=== PATIENT | female | born 2000 | race Caucasian/White ===

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

== ENCOUNTER → 2020-06-13 | Outpatient (CLI) | payer SELFPAY | END | disposition home or self-care (01) | LOC: LABSPEC 07:14 | PROVIDERS: PCP Pediatrics; Referring Provider Family Medicine; Visit Provider Family Medicine | DX: Z11.59 Encounter for screening for other viral diseases (principal) | CPT/HCPCS: 87635; U0003 ==

== ENCOUNTER → 2020-06-24 | Outpatient (CLI) | payer SELFPAY | END | disposition home or self-care (01) | PROVIDERS: PCP Pediatrics; Visit Provider Family Medicine | DX: Z03.818 Encounter for observation for suspected exposure to other biological agents ruled out (principal) | CPT/HCPCS: 87635; U0003 ==

== ENCOUNTER 2020-08-25 08:30 | Emergency (ER) | payer MEDICARE, SELFPAY ==
[2020-08-25 08:31] VITALS: BP 138/87; PULSE 80; RESP 16; TEMP 36.2; O2SAT 99; BMI 27.6
[2020-08-25 08:38] VITALS: O2SAT 98
--- NOTE | 2020-08-25 08:45 | ED.VIS.GEN ---
History of Present Illness Chief Complaint: Shortness of Breath Informant: Patient Narrative: Patient is a 19-year-old previously healthy female who presents to the emergency department for exposure to coronavirus symptoms. She started to have symptoms yesterday. She has been having chills, fatigue, cough with production, shortness of breath. She states she feels very rundown. Her symptoms started yesterday. He has had some diarrhea. She does feel occasionally nauseous. She has been taking NyQuil for her symptoms. Her best friend who had similar symptoms tested positive. Patient does work and a long-term and does get tested. Last test was last week and was negative. She denies smoking history. She does have chronic chest pain that she has had worked up before. This is similar to her baseline. No significant abdominal pain. She has had a headache. Past Medical History - Allergies and Home Meds Allergies/Adverse Reactions: Allergies No Known Allergies Allergy (Verified 04/15/19 00:28) Primary Care Physician: Rachel Bird MD [Primary Care Provider] - Prior records reviewed: Yes Surgical History: tonsillectomy, - Smoking Status: Never smoker Review of Systems All systems negative except as indicated General: Reports: Chills, Fever - Subjective. Denies: Sweats Eyes: Denies: Visual changes - bilaterally, Diplopia ENT: Reports: Rhinorrhea. Denies: Sore throat Cardiovascular: Reports: Chest pain. Denies: Palpitations Respiratory: Reports: Dyspnea, Cough Gastrointestinal: Reports: Nausea, Diarrhea. Denies: Abdominal pain, Vomiting Genitourinary: Denies: Dysuria, Hematuria, Frequency Musculoskeletal: Denies: Back pain, Extremity Pain Skin: Denies: Rash, Wounds Neurological: Reports: Headache. Denies: Weakness, Numbness Physical Exam Vital Signs/Narrative: Vital Signs Temp Pulse Resp BP Pulse Ox 08/25/20 08:31 97.2 F L 80 16 138/87 H 99 Inital Vital Signs reviewed: Yes General: Well nourished, Well developed, No Acute Distress Head: Normocephalic, Atraumatic Eyes: Perrl, EOMI ENT: Moist mucous membranes, No rhinorrhea Neck: Supple, Nontender Cardiovascular: Regular rate, Regular rhythm, No murmurs Respiratory: No distress, CTA bilaterally, Chest nontender Abdomen: Soft, Nondistended Back: Nontender, Normal Inspection Extremities: Nontender, No edema Skin: Normal color, No rash Neurological: Alert, Oriented x3, Cranial nerves II-XII grossly intact, Normal Strength, Normal Sensation Psychological: Normal affect, Normal Mood Diagnostic/Tx/Re-eval - Medical Decision Making Patient presents to the emergency department to be tested for coronavirus. She is started developed symptoms yesterday. She has a known coronavirus exposure. At this time with all of her symptoms I do feel she is Covid positive. Will obtain swab. Needs to quarantine until symptoms resolve. She is advised to get a pulse oximeter and to keep track of her oxygen saturation. She develops any significant shortness of breath and has a desaturation she needs to return to the emergency department immediately. She otherwise is to follow-up with her PCP once quarantine period is over. Otherwise symptomatic treatment with ibuprofen and Tylenol. She understands and is agreeable this plan. Will discharge home in stable condition. All questions answered. ED Disposition - Plan for ED Patient: Disposition: Home or Assisted Living Diagnosis: Viral infection, Exposure to COVID-19 virus, URI (upper respiratory infection) Instructions: Coronavirus Disease 2019 (COVID-19): Caring for Yourself or Others Referrals: Rachel Bird MD [Primary Care Provider] - 1 Week if not improving
== END 2020-08-25 09:10 | disposition home or self-care (01) ==
LOC: ED 09:04
PROVIDERS: Emergency Provider Emergency Medicine; PCP Pediatrics
DX: U07.1 COVID-19 (principal); J06.9 Acute upper respiratory infection, unspecified
CPT/HCPCS: 87635; 99282; U0003

== ENCOUNTER 2021-02-26 19:53 | Emergency (ER) | payer SELFPAY ==
[2021-02-26 19:54] VITALS: BP 136/84; PULSE 98; RESP 18; TEMP 36.7; O2SAT 99; BMI 27.0
--- NOTE | 2021-02-26 20:21 | EX.ED.UPPERE ---
HPI History of Present Illness HPI Narrative: Patient presents with right shoulder pain that is been gone going for a year she was diagnosed with rotator cuff strain. She has been lifting quite a bit and doing quite a bit of work with her right arm. She has no other injuries. Chief Complaint: Upper Extremity Injury PFSH PFSH Home Medications NK 08/25/20 [History Last Taken Unknown] Allergy/AdvReac Type Severity Reaction Status Date / Time No Known Allergies Allergy Verified 02/26/21 19:55 Social History Smoking Status: Never smoker ROS ROS ED ROS Narrative Past medical history: none Medications: Reviewed Social history: Noncontributory Review of systems: Musculoskeletal: Shoulder pain as in HPI Skin: No abrasions or lacerations Neurological: No weakness or paresthesias Hematologic: No easy bleeding or easy bruising EXAM Physical Exam Narrative Exam Narrative: Physical exam General: Patient does not appear in significant distress . Head: Normocephalic, Atraumatic Neck: No C-spine tenderness Cardiovascular: Normal distal pulses Back: Nontender, Normal Inspection. Extremities: Right shoulder has pain over the deltoid and rotator cuff muscles, some pain with abduction greater than 90 degrees but she has full range of motion she has no AC joint tenderness no clavicle tenderness no neck pain or any other pain. Skin: No abrasions, no lacerations Neurological: Normal strength and sensation Const Vital Signs: 02/26/21 19:54 Temperature 98.1 F Temperature Source Temporal Pulse Rate 98 Respiratory Rate 18 Blood Pressure 136/84 H Blood Pressure Mean 101 Pulse Ox 99 Oxygen Delivery Method Room Air MDM MDM MDM Narrative Medical decision making narrative: Patient's symptoms are consistent with rotator cuff tendinitis I do not believe she needs an x-ray. I will give her some exercises, otherwise she can follow-up with her PCP for rehab Discharge Plan Triage Chief Complaint: Upper Extremity Injury ED Provider: Lincoln Abdi Dx/Rx/DC Orders Clinical Impression: Right rotator cuff tendinitis Instructions: Rotator Cuff Injury Prescriptions: No Action NK RF: 0 Primary Care Provider: Rachel Bird Referrals: Rachel Bird MD [Primary Care Provider] - 3-5 Days
== END 2021-02-26 20:44 | disposition home or self-care (01) ==
LOC: ED 20:34
PROVIDERS: Emergency Provider Emergency Medicine; PCP Pediatrics
DX: M75.81 Other shoulder lesions, right shoulder (principal)
CPT/HCPCS: 99282

== ENCOUNTER 2021-05-08 18:51 | Emergency (ER) | payer SELFPAY ==
[2021-05-08 18:53] VITALS: BP 125/87; PULSE 75; RESP 14; TEMP 36.3; O2SAT 98; BMI 26.2
== END 2021-05-08 19:30 | disposition left against medical advice (07) ==
LOC: ED 19:44
PROVIDERS: PCP Pediatrics
DX: Z53.21 Procedure and treatment not carried out due to patient leaving prior to being seen by health care provider (principal)

== ENCOUNTER 2021-08-29 16:44 | Emergency (ER) | payer SELFPAY ==
[2021-08-29 16:45] VITALS: BP 128/77; PULSE 92; RESP 18; TEMP 36.8; O2SAT 98; BMI 26.4
--- NOTE | 2021-08-29 16:53 | EKG12_ITS ---
Test Reason : CP Blood Pressure : / mmHG Vent. Rate : 075 BPM Atrial Rate : 075 BPM P-R Int : 170 ms QRS Dur : 076 ms QT Int : 372 ms P-R-T Axes : 059 051 064 degrees QTc Int : 415 ms Normal sinus rhythm Normal ECG Confirmed by JEANNETTE ARGUELLO, HANNAH ([id number]), restaurant expeditor MARGARETH BRYANT ([id number]) on 09/03/2021 9:55:08 AM Referred By: GUDELIA Confirmed By:HANNAH MACHADO MD
--- NOTE | 2021-08-29 16:53 | RAD_ITS ---
STUDY: X-RAY CHEST REASON FOR EXAM: Female, 20 years old. Chest pain. Headache and cough. TECHNIQUE: Single AP portable view of the chest. COMPARISON: 09/26/2019. FINDINGS: The lungs are clear and expanded. There is no demonstrated pleural abnormality. Normal size heart. Normal mediastinum and julien. Normal visualized pulmonary arteries. Normal visualized aortic arch and descending thoracic aorta. Normal visualized thoracic spine. Normal visualized ribs, clavicles, and shoulders. There is no demonstrated abnormality of the visualized soft tissue structures of the upper abdomen. RAD/Chest 1 View (Portable) IMPRESSION: No acute cardiopulmonary disease or major interval change. Electronically Signed: Danilo Trejo DO at 18:03 EST Tel [phone], Service support ,
--- NOTE | 2021-08-29 17:43 | ED.RN ---
PT. STATES THEY WERE AROUND FAMILY WITH COVID. STARTED HAVING SYMPTOMS YESTERDAY. COVID TEST YESTERDAY WAS NEGATIVE. NEEDS PROOF FOR WORK THAT THEY ARE NEGATIVE FOR COVID.
--- NOTE | 2021-08-29 18:51 | EX.ED.DYSGE1 ---
HPI History of Present Illness Chief Complaint: General Illness Narrative Narrative: 20-year-old female presenting with body aches, chills, mild cough. She lives with her roommate who also has the same symptoms. Her roommates mother tested positive for COVID-19. Patient states that she felt generally unwell for the last couple of days and she called in sick today and did not have a doctor's note so she was sent to the ER for doctor's note. Patient is only having very mild symptoms. She does not have any cardiac history or pulmonary history. She states she has no medical problems. PFSH PFS Home Medications NK 08/25/20 [History Last Taken Unknown] Allergy/AdvReac Type Severity Reaction Status Date / Time No Known Allergies Allergy Verified 05/08/21 18:52 Social History Smoking Status: Current every day smoker tobacco type: cigarettes ROS ROS ED Constitutional Constitutional ED: Reports chills and fever(s) Eyes Eyes: Denies blurry vision or diplopia ENT ENT ED: Denies rhinorrhea or sore throat Cardiovascular Cardiovascular: Denies chest pain or palpitations Respiratory/Chest Respiratory/Chest: Reports cough and dyspnea Gastrointestinal Gastrointestinal: Reports nausea; Denies abdominal pain or vomiting Genitourinary Genitourinary ED: Denies dysuria or hematuria Musculoskeletal Musculoskeletal: Reports myalgias; Denies arthralgias Integumentary Denies rash Neurologic Neurologic: Denies headache(s), paresthesias or weakness EXAM Physical Exam Const Vital Signs: 08/29/21 16:45 08/29/21 17:42 Temperature 98.2 F Temperature Source Temporal Pulse Rate 92 Respiratory Rate 18 Respiratory Effort Normal Non-Labored Blood Pressure 128/77 H Blood Pressure Mean 94 Pulse Ox 98 Oxygen Delivery Method Room Air Positive well nourished General Appearance ED: NAD; Negative for pallor HEENT Reports moist mucous membranes Negative for trauma Eyes PERRL and EOMs intact bilaterally Neck no lymphadenopathy and supple Chest Wall inspection of chest normal and palpation of chest normal Resp normal respiratory effort and clear to auscultation bilaterally Cardio regular rate and regular rhythm Neuro oriented x3 and CN's II-XII intact bilaterally Sensorium / Orientation: alert Motor Exam: strength 5/5 throughout Psych mental status grossly normal Skin General Skin Exam: Negative for jaundice or pallor MDM MDM MDM Narrative Medical decision making narrative: Patient initially reported to triage nurse that she was having chest pain however she denies this on my exam. She states he is here for a work note because she has to call in sick to work because she thinks she might had COVID-19. Patient's vital signs are stable here. She is not tachycardic, tachypneic, febrile, hypoxic. Her physical exam is normal and her lungs are clear. I obtained a chest x-ray which is negative for acute pulmonary process on my interpretation and the radiologist does agree. Patient will have a Covid test ordered and will be pending. Patient will quarantine at home for results. Impression: 1. Viral syndrome Radiography Diagnostic Testing: Clinical Impression(s) from Imaging Studies Chest X-Ray 08/29/21 16:53 IMPRESSION: No acute cardiopulmonary disease or major interval change. Electronically Signed: Danilo TrejoDO at 18:03 EST Tel [phone], Service support , Discharge Plan Triage Chief Complaint: General Illness ED Provider: Yan Floyd Dx/Rx/DC Orders Instructions: Coronavirus Disease 2019 (COVID-19): Caring for Yourself or Others Prescriptions: No Action NK RF: 0 Stand Alone Forms: ED Work / School Excuse Primary Care Provider: Rachel Bird Referrals: Rachel Bird MD [Primary Care Provider] - Disposition Disposition: Home, Self Care Discharge Date/Time: 08/29/21 18:53
== END 2021-08-29 18:53 | disposition home or self-care (01) ==
PROVIDERS: Emergency Provider Student in an Organized Health Care Education/Training Program; PCP Pediatrics
DX: B34.9 Viral infection, unspecified (principal); R05.9 Cough, unspecified; R68.83 Chills (without fever); M79.10 Myalgia, unspecified site; R11.0 Nausea; F17.210 Nicotine dependence, cigarettes, uncomplicated
CPT/HCPCS: 71045; 87635; 93005; 99282; U0003; U0005

== ENCOUNTER 2022-03-29 18:58 | Emergency (ER) | payer SELFPAY ==
[2022-03-29 18:59] VITALS: BP 132/88; PULSE 84; RESP 16; TEMP 37.6; O2SAT 99; BMI 24.7
--- NOTE | 2022-03-29 19:25 | EDS_ITS ---
HPI HPI - GI History of Present Illness Chief Complaint: Nausea/Vomiting Informant: patient Abdominal Pain/Flank Pain Onset: Month(s) Context: Gradual Onset Timing: Intermittent Quality: Cramping Location: Diffuse Current Severity: Gone Maximum Severity: Mild Worsened by: Nothing Relieved by: Nothing Nausea/Vomiting/Emesis GI Symptom: Positive for Nausea and Vomiting Onset: Weeks Severity: Mild Diarrhea/Melena/Hematochezia GI Symptom: Positive for Diarrhea; Negative for Melena or Hematochezia Onset: Weeks Stool Quality: Positive for Loose Severity: Mild Associated Symptoms Associated Symptoms: Positive for Frequency; Negative for Dysuria, Hematuria or Urgency Narrative Narrative: 21-year-old female no signet past medical history. No prior abdominal surgeries. Mom states that she has been under a lot of stress. Month or 2 ago her girlfriend broke up with her. And now she has been unable to eat. She says she been emotional. She has had decreased appetite. In the last 30 days she is gone from 220 pounds to 182 had about a 38 pound weight loss. Mom says she is never had an eating door sorter before. Patient states when she eats sometimes she has abdominal cramping and other times nausea and vomiting. Denies dysuria but states she has had urinary frequency. She has been drinking plenty of fluids. She just states she does not have an appetite and feel like eating. Prior similar symptoms: No Recent Illness/Hospitalization: No PFSH PFSH Medical History no medical history no medical history Home Medications ondansetron 4 mg disintegrating tablet 4 mg PO Q6H PRN nausea and vomiting #10 tabs 03/29/22 [Rx Last Taken Unknown] Allergy/AdvReac Type Severity Reaction Status Date / Time No Known Allergies Allergy Verified 03/29/22 19:04 Surgical History (Updated 03/29/22 @ 19:40 by Bell Miles) History of tonsillectomy and adenoidectomy Social History Smoking Status: Current every day smoker tobacco type: cigarettes and e- cigarettes ROS ROS ED ROS Narrative Nausea, vomiting, diarrhea and urinary frequency. Decreased appetite. Review of Systems ROS Unobtainable: Denies due to encephalopathy Constitutional Constitutional ED: Denies chills or fever(s) ENT ENT ED: Denies ear pain Cardiovascular Cardiovascular: Denies chest pain Respiratory/Chest Respiratory/Chest: Denies cough Gastrointestinal Gastrointestinal: Reports abdominal pain, diarrhea, nausea and vomiting; Denies melena Genitourinary Genitourinary ED: Reports urinary frequency; Denies dysuria or hematuria Musculoskeletal Musculoskeletal: Denies arthralgias or back pain Integumentary Denies abscess or Abrasions Neurologic Neurologic: Denies headache(s) Psychiatric Psychiatric: Reports depression; Denies anxiety Endocrine Endocrinology: Denies polydipsia Hematologic/Lymphatic Hematologic/Lymphatic: Denies easy bleeding Allergic/Immunologic Allergic/Immunologic ED: Denies mouth swelling EXAM Physical Exam Narrative Exam Narrative: 21-year-old female no acute distress. Vital signs stable afebrile. Patient does not look septic toxic. Mom present at bedside. H EENT exam unremarkable. Moist with membranes. Neck nontender no lymphadenopathy. Lungs clear to auscultation bilaterally. Heart regular rhythm rate about 80 no murmur. Abdomen soft nontender normal bowel sounds no peritoneal signs. No distention. No hernia or mass. Completely nontender. Moving all 4 extremities. Back nontender. Skin unremarkable. Neurologically she is awake and alert. Emotionally seems a little depressed. With a 38 pound weight loss she does not seem emaciated nor cachectic. Const Vital Signs: 03/29/22 18:59 Temperature 99.7 F H Temperature Source Temporal Pulse Rate 84 Respiratory Rate 16 Blood Pressure 132/88 H Blood Pressure Mean 102 Pulse Ox 99 Oxygen Delivery Method Room Air Positive well nourished and well developed; Negative for obese, cachectic, contractures or unkempt General Appearance ED: well developed and NAD; Negative for unkempt, cachectic, contractures or pallor Nutritional Appearance: Negative for cachectic or obese HEENT Reports moist mucous membranes; Denies dry mucous membranes normocephalic and atraumatic; Negative for trauma or tenderness Mouth ED: No dry mucous membranes Mouth: No dry mucous membranes Eyes PERRL and EOMs intact bilaterally General Eye ED: Negative for pale conjunctiva or scleral icterus Neck no lymphadenopathy and supple General: Negative for tenderness Carotids: Negative for other Lymph Lymphatic: Negative for other Resp normal respiratory effort and clear to auscultation bilaterally Effort and Inspection: Negative for respiratory distress Auscultation: Negative for rales, rhonchi or wheezes Cardio regular rate, regular rhythm, S1 normal heart sound, S2 normal heart sound and no murmurs Rate: Negative for bradycardia Rhythm: Negative for abnormal rhythm GI non-tender, non-distended and no masses Inspection: Negative for abdominal distention Auscultation: normoactive bowel sounds Palpation: soft; Negative for tender, guarding or rigid Back/Spine no CVA tenderness General Back: Negative for CVA tenderness Cervical Spine: Negative for cervical spine tenderness Thoracic Spine / Upper Back: Negative for thoracic spinal tenderness Lumbar Spine / Lower Back: Negative for lumbar spinal tenderness Coccyx: Negative for other Extremity full ROM General Extremety ED: Negative for edema or tenderness General Extremity: Negative for edema Neuro CN's II-XII intact bilaterally and moves all extremities Sensorium / Orientation: alert, oriented to person, oriented to place and oriented to time; Negative for orientation impaired, confused, lethargic or stuporous Motor Exam: strength 5/5 throughout; Negative for general weakness or strength abnormal Psych mental status grossly normal and thought process normal Appearance: Negative for unkempt Attitude: No agitated Mood & Affect: depressed; Negative for anxious or tearful Skin no wounds General Skin Exam: Negative for jaundice or pallor Lesions: no lesions Rashes: no rashes Trauma: Negative for abrasion Nails: Negative for discolored MDM MDM MDM Narrative Medical decision making narrative: 1-year-old female who reportedly has not been eating much at all but has been taking fluids for the last month and has reportedly a 30 pound weight loss. This may be secondary to depression. She might also be developing an eating disorder. Her exam is benign. She is well-hydrated. Her abdomen is nontender. We will check screening labs. She will need outpatient follow-up. Repeat exam patient doing well. She does clinically seem depressed. She went to talk to crisis which were making available. I do not think she will need a mental health admission. She will be discharged home with her mom with outpatient follow-up. Prescription for Zofran for nausea. Patient doing well at 8:50 PM on repeat exam. Discussed test results with her and her mom. She will be discharged to home as long as crisis is in agreement. Patient doing well at 11:15 PM. She has been checked out to the overnight physician. Just waiting to talk to crisis. Lab Data Attestation: I reviewed the patient's lab results. Lab results narrative: test negative. CBC normal. White count of 6. H&H 13 and 38. Chemistries normal gap of 5 normal BUN and creatinine. Liver enzymes unremarkable. Lipase normal 106. Urinalysis negative. No white or red cells. No nitrites. Labs: Laboratory Results - last 24 hr 03/29/22 03/29/22 03/29/22 19:35 19:35 19:35 WBC 6.9 RBC 4.21 Hgb 13.0 Hct 38.8 MCV 92.2 MCH 30.9 MCHC 33.5 RDW Std Deviation 46.3 H RDW Coeff of Leonila 13.6 Plt Count 226 MPV 12.6 H Immature Gran % (Auto) 0.300 Neut % (Auto) 66.7 Lymph % (Auto) 24.7 [place] % (Auto) 6.5 Eos % (Auto) 0.9 Baso % (Auto) 0.9 Absolute Neuts (auto) 4.6 Absolute Lymphs (auto) 1.70 Nucleated RBC % 0 Sodium 141 Potassium 3.5 Chloride 108 H Carbon Dioxide 28.0 Anion Gap 5 BUN 5 L Creatinine 0.80 Estim Creat Clear Calc 128.37 Est GFR (MDRD) Af Amer 116 Est GFR (MDRD) Non-Af 96 BUN/Creatinine Ratio 6.3 L Glucose 100 Calcium 9.5 Total Bilirubin 0.50 AST 10 L ALT 12 L Alkaline Phosphatase 50 Total Protein 7.3 Albumin 4.2 Globulin 3.1 Albumin/Globulin Ratio 1.4 Lipase 106 Serum , Qual NEGATIVE Urine Color Urine Clarity Urine pH Ur Specific [place] Urine Protein Urine Glucose (UA) Urine Ketones Urine Occult Blood Urine Nitrite Urine Bilirubin Urine Urobilinogen Ur Leukocyte Esterase Urine RBC Urine WBC Ur Squamous Epith Cells Urine Bacteria Urine Mucus 03/29/22 20:47 WBC RBC Hgb Hct MCV MCH MCHC RDW Std Deviation RDW Coeff of [place]ila Plt Count MPV Immature Gran % (Auto) Neut % (Auto) Lymph % (Auto) [place] % (Auto) Eos % (Auto) Baso % (Auto) Absolute Neuts (auto) Absolute Lymphs (auto) Nucleated RBC % Sodium Potassium Chloride Carbon Dioxide Anion Gap BUN Creatinine Estim Creat Clear Calc Est GFR (MDRD) Af Amer Est GFR (MDRD) Non-Af BUN/Creatinine Ratio Glucose Calcium Total Bilirubin AST ALT Alkaline Phosphatase Total Protein Albumin Globulin Albumin/Globulin Ratio Lipase Serum , Qual Urine Color Yellow Urine Clarity Clear Urine pH 6.5 Ur Specific [place] 1.015 Urine Protein Negative Urine Glucose (UA) Normal Urine Ketones Negative Urine Occult Blood Negative Urine Nitrite Negative Urine Bilirubin Negative Urine Urobilinogen 1 H Ur Leukocyte Esterase 25 H Urine RBC 0 SEEN Urine WBC 0-5 SEEN Ur Squamous Epith Cells 0-5 SEEN Urine Bacteria 1+ Urine Mucus 0 SEEN Discharge Plan Triage Chief Complaint: Nausea/Vomiting ED Provider: Jean Claude Foreman Dx/Rx/DC Orders Clinical Impression: Depression, Eating disorder Instructions: ED Depression Prescriptions: New ondansetron 4 mg tablet,disintegrating 4 mg PO Q6H PRN (Reason: nausea and vomiting) Qty: 10 0RF Primary Care Provider: Rahcel Bird Referrals: Sai Booth MD [Med Staff - Quality Assurance Supervisor [employer]] - As soon as possible Rachel Bird MD [Primary Care Provider] - As soon as possible Activity Restrictions/Additional Instructions: Follow-up with a local primary care physician. Plenty of fluids. Start with a bland diet and increase slowly as tolerated. Disposition Disposition: Home, Self Care
[2022-03-29 19:52] LABS: Internal QC Validated? YES +Cl - CLEAR BKGD; Pregnancy, Serum, hCG Quali. NEGATIVE Negative
[2022-03-29 20:06] LABS: Absolute Neutrophil Count 4.6 X10^3/uL (2.0-7.7); Basophil# 0.06 X10^3/uL; Basophil% 0.9 % (0-1); Eosinophil# 0.06 X10^3/uL; Eosinophils% 0.9 % (0-5); Hematocrit 38.8 % (37-47); Lymphocyte % 24.7 % (19-41); Mean Corp Hgb Conc 33.5 g/dL (32-36); Mean Corpuscular Hgb 30.9 pg (27.0-32.0); Mean Corpuscular Volume 92.2 fL (81-99); Mean Platelet Vol. 12.6 fl (6.2-12.0); Monocyte# 0.45 X10^3/uL; Monocyte% 6.5 % (0-10); NRBC Flagged by Analyzer 0 % (0-5); Neutrophil # 4.59 X10^3/uL (2.7-7.7); Neutrophil % 66.7 % (47-70); Platelet Count 226 K/mm3 (150-450); RBC Distribution Width CV 13.6 % (11.6-14.6); RBC Distribution Width SD 46.3 fl (35.1-43.9); Red Blood Count 4.21 M/mm3 (4.2-5.4); White Blood Count 6.9 K/mm3 (4.4-11.0)
[2022-03-29 20:20] LABS: ALB/GLOB Ratio 1.4 RATIO (0.9-2.4); AST(SGOT) 10 U/L (15-37); Alanine Aminotransfer ALT/SGPT 12 U/L (13-56); Albumin, Serum 4.2 g/dL (3.2-5.0); Alkaline Phosphatase 50 U/L (45-117); BUN 5 mg/dL (7-18); BUN/Creat Ratio 6.3 RATIO (10-20); Calcium,Total 9.5 mg/dL (8.5-10.1); EST Glomerular Filtration Rate 96 mL/min (>60); Est Glom Filt Rate - Afr Amer 116 mL/min (>60); Estimated Creatinine Clearance 128.37 ml/min; Globulin 3.1 g/dL (2.2-4.2); Glucose 100 mg/dL (74-106); Lipase 106 U/L (73-393); Protein, Total 7.3 g/dL (6.4-8.2)
[2022-03-29 20:21] LABS: Anion Gap 5 (5-15); Chloride 108 mmol/L (98-107); Potassium 3.5 mmol/L (3.5-5.1); Sodium Level 141 mmol/L (136-145)
[2022-03-29 21:03] LABS: Mucous, Urine 0 SEEN /hpf (<or=2+); Red Blood Cells-Urine 0 SEEN /hpf (0-5)
[2022-03-29 21:05] LABS: Color, Urine Yellow (Yellow); Glucose, Dipstick Normal (Normal); Ketone-Dipstick Negative (Negative); Leukocyte Esterase-Dipstick 25 /ul (Negative); Nitrite-Dipstick Negative (Negative); Occult Blood-Urine Negative /ul (Negative); Protein-Dipstick Negative (Negative); Specific Gravity, Urine 1.015 (1.002-1.030); Urine Bilirubin Dipstick Negative (Negative); Urine Clarity Clear (Clear); Urine Urobilinogen 1 mg/dl (Normal); Urine pH 6.5 (5.0 - 8.0)
[2022-03-29 21:15] LABS: Bacteria 1+ /hpf (None Seen); Squamous Epithelial Cells - UA 0-5 SEEN /hpf (5-10); White Blood Cells 0-5 SEEN /hpf (0-5)
[2022-03-30 01:43] VITALS: BP 105/74; PULSE 67; RESP 15; O2SAT 99
== END 2022-03-30 01:43 | disposition home or self-care (01) ==
PROVIDERS: Emergency Provider Emergency Medicine; PCP Pediatrics; Visit Provider Emergency Medicine
DX: F32.A Depression, unspecified (principal); R11.2 Nausea with vomiting, unspecified; F17.210 Nicotine dependence, cigarettes, uncomplicated; F17.290 Nicotine dependence, other tobacco product, uncomplicated; F50.9 Eating disorder, unspecified; R19.7 Diarrhea, unspecified; R10.9 Unspecified abdominal pain; Z68.24 Body mass index [BMI] 24.0-24.9, adult
CPT/HCPCS: 80053; 81001; 83690; 84703; 85025; 99284; A4216

== ENCOUNTER 2022-04-07 08:00 | Outpatient (RCR) | payer SELFPAY ==
--- NOTE | 2022-04-07 09:00 | BH.SGPN.GN ---
Behaviors/Verbalizations/Mental Status: []Pt alert and oriented, disheveled. Eye contact good. Motor activity appropriate. Speech within normal limits. Affect flat, mood anxious and depressed. Thoughts linear, logical, no signs of hallucinations or delusions. Pt completed the CSSR-S this morning, no active SI. Client Response/Progress/Benefit: []Pt responded somewhat well to session, anxious and quiet, but receptive to encouragement from peers. Pt declined to share today as it was her first day in IOP tx. The group offered pt emotional support and advice for reducing anxiety in IOP. Pt expressed being thankful to peers for the feedback and appeared to benefit from the welcoming and accepting environment. Pt will continue IOP tx to prevent decompensation, reduce SI, and gain healthy coping skills. Narrative Note: [] Behaviors/Verbalizations/Mental Status: []Pt alert and oriented, disheveled. Eye contact good. Motor activity appropriate. Speech within normal limits. Affect flat, mood anxious and depressed. Thoughts linear, logical, no signs of hallucinations or delusions. Pt completed the CSSR-S this morning, no active SI. Client Response/Progress/Benefit: []Pt responded somewhat well to session, anxious and quiet, but receptive to encouragement from peers. Pt declined to share today as it was her first day in IOP tx. The group offered pt emotional support and advice for reducing anxiety in IOP. Pt expressed being thankful to peers for the feedback and appeared to benefit from the welcoming and accepting environment. Pt will continue IOP tx to prevent decompensation, reduce SI, and gain healthy coping skills. Narrative Note: []
--- NOTE | 2022-04-07 09:00 | BH.COMM ---
Communication Note - Communication with Client Communication Note: Met with patient to complete initial paperwork. No significant changes since pre-admission screening. Completed [place] Suicide Screener. Pt reports long-standing suicidal thoughts with methods (crash car) since she was a teenager. Recent break-up with GF which triggered increased suicidal thoughts in the past 2 months. She reports that thoughts are fleeting lasting only minutes and she believes that she can control them. No hx of attempts. Protective factors. Future-oriented. In describing her thoughts they appears to be mostly passive (seconds-minutes) which occur daily with thoughts of method however no concrete plan or intent. Does not present as imminent risk to self. Consulted with Dr. Ram with plan to admit to IOP level of care with dx of F33.2.
--- NOTE | 2022-04-07 10:05 | BH.SGPN.GN ---
Behaviors/Verbalizations/Mental Status: [] Client alert and oriented, casually dressed and groomed. Eye contact good. Motor activity appropriate. Speech within normal limits. Affect constricted, mood dysthymic. Thoughts linear, logical, no signs of hallucinations or delusions. Client Response/Progress/Benefit: [] Client was an active participant in activity and taking notes during group discussion. Client adjusting to group environment with it being her first day in IOP. Attentive AEB taking notes during psychoeducation on coping skills, why people use unhealthy coping skills, and how to replace unhealthy coping skills. Benefited from increased understanding of unhealthy coping skills and the need for developing healthy internal and external coping skills. Pt will continue IOP tx to prevent decompensation, maintain safety, and improve daily functioning. Narrative Note: []
--- NOTE | 2022-04-07 11:05 | BH.SGPN.GN ---
Behaviors/Verbalizations/Mental Status: [] Client alert and oriented, neatly dressed and groomed. Eye contact fair to good. Motor activity appropriate. Speech within normal limits. Affect constricted, mood euthymic. Thoughts linear, logical, no signs of hallucinations or delusions. Client Response/Progress/Benefit: [] Client responded well to session AEB taking notes and providing input and examples throughout. Group discussed the different categories of coping skills which included distraction, emotional release, grounding, self-love, and thought challenging. Client created a coping skill menu identifying various skills to try in each category. Client chose to cope by exercising when feeling intense emotions. Appeared to benefit from increasing repertoire of healthy coping skills. Client will continue IOP tx to improve daily functioning, prevent decompensation and increase application of healthy coping skills. Narrative Note: []
--- NOTE | 2022-04-08 09:00 | BH.SGPN.GN ---
Behaviors/Verbalizations/Mental Status: []Pt alert and oriented, casually dressed. Eye contact poor. Motor activity appropriate. Speech WNL. Affect flat, mood depressed. Thoughts linear, logical, no signs of hallucinations or delusions. Reviewed pt?s symptom tracker client indicated a 3/5, with 5 being severe, for suicidal ideation and 3/5 for suicidal intent. This is pt's baseline. Does not appear to be imminent risk to harm self or others. Client Response/Progress/Benefit: []Pt appeared to listen attentively to peers check-in. Pt elected to not share mental health wins, stressor or emotion this morning. Client's first week in IOP and had shared she is anxious about talking in a group setting. Client seemed to benefit from listening to peers current wins and stressors. Client will continue IOP tx to improve daily functioning, increase healthy coping skills and prevent decompensation.
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
[2022-04-08 11:51] VITALS: BP 132/92; PULSE 64
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
--- NOTE | 2022-04-08 12:21 | BH.DR.ITP ---
Initial Treatment Plan Patient Information Visit Information: ADMISSION DATE: EXPECTED LOS: 4-6 weeks Problems/Symptoms Problem #1:: Depression Symptom:: Sadness, hopelessness, worthlessness, guilt, anhedonia, biological disruption of appetite and sleep, decreased concentration, passive thoughts of , passive, fleeting suicidal ideation Problem #2:: Anxiety Symptom:: Worry, rumination
--- NOTE | 2022-04-09 09:56 | BH.PSA ---
Suicide Assessment Treatment Plan Recommendations
--- NOTE | 2022-04-09 10:10 | BH.SGPN.GN ---
Behaviors/Verbalizations/Mental Status: []Client alert and oriented, casual dress, hygiene tended to. Eye fair. Motor activity appropriate. Speech within normal limits. Affect constricted. mood dysthymic. Thoughts linear, logical, no signs of hallucinations or delusions. Client Response/Progress/Benefit: []Pt mostly passive participant. Pt appeared to listen attentively to peers, did not provide feedback during large group discussion. Pt worked with the group during discussion of the costs of resisting change and the benefits of adapting to adversity. \Attentive during psychoeducation on various leyva factors in developing personal resilience. Pt worked in small group at times helping group with identifying benefits of each factor in fostering resilience. Pt stated she struggles most with the resilience factor of taking care of herself. Recognizes this keeps her isolated and depressed. Pt seemed to benefit from increasing awareness of strategies to increase personal resilience and the impacts of resilience on managing mental health sx. Will continue IOP tx to promote the use of healthy coping skills, improve daily functioning and prevent decompensation.
--- NOTE | 2022-04-09 11:10 | BH.SGPN.GN ---
Behaviors/Verbalizations/Mental Status: []Client alert and oriented, casually dressed and groomed. Eye contact fair.. Motor activity appropriate. Speech within normal. Affect constricted. Mood dysthymic. Thoughts linear, logical, no signs of hallucinations or delusions. Client Response/Progress/Benefit: []Client semi-engaged participant as evidenced by client engaged in activity and appeared to listen attentively to others, however providing limited input throughout discussion. Client engaged in group activity. Able to connect how the group utilized the 10 resiliency components to be successful in challenge activity. Client did not share what resiliency component she would like to strengthen, nor did she share the goal she created. Client appeared to benefit from increasing insight to ways in which client can improve resilience to adversity and daily stressors. Client to continue IOP tx to increase emotion regulation, increase healthy coping and prevent decompensation.
--- NOTE | 2022-04-09 13:56 | BH.MTP ---
Master Treatment Plan - Psychiatric Diagnoses Psychiatric Diagnoses:: 1. Major depressive disorder, recurrent, severe without psychosis. 2. Generalized anxiety disorder. 3. Body dysmorphic disorder. 4. Eating disorder, NOS. 5. Strong cluster B traits Diagnosis Code(s):: F33.2 Problem/Goal #1 - Problem/Goal #1 Functional Impact: The patient is a 21-year-old single female with a history of longstanding depression and worsening depression following a break-up with a girlfriend 2 months ago who was referred to the [facility] intensive outpatient program by the crisis center after she went to the emergency room on March 30, 2022 with complaints of depression, passive suicidal ideation and not eating. Since the break-up with her girlfriend and the worsening of her depression and anxiety the patient could not eat without feeling sick. Since break up client endorses difficulty getting out of bed, depressed mood, increased anger/irritability, destruction of her own property, uncontrollable crying, feelings of worthlessness and hopelessness. Mental health was also impacting work functioning which led to decrease in her hours. She also has fleeting, passive suicidal ideation with a possible plan to wrecked her car but she states that she would never kill herself.
--- NOTE | 2022-04-09 14:46 | BH.MDN ---
Multi-Disciplinary Note - Note 45-min Individual Time Started:: 09:00 Date: 04/09/22 Time Stopped:: 09:45
--- NOTE | 2022-04-13 09:00 | BH.SGPN.GN ---
Behaviors/Verbalizations/Mental Status: []Eye contact is fair. Motor activity is appropriate. Appearance is casual. Speech is Appropriate. Mood is euthymic. Affect is congruent. Thoughts are linear and logical. No evidence of psychosis. Reviewed daily check in sheet and indicates a 3/5, with 5 being severe, for suicidal ideation and a 3/5 for suicidal intent. This is client's baseline for suicidal ideation. Does not appear to be imminent risk to harm self or others. future focused. Client Response/Progress/Benefit: [] Client respond well to session as evidenced by listening attentively to others and sharing thoughts and feelings. Client reported mental health positive as eating over the weekend and not getting nauseous or hating myself. Client reported additional mental positive as hanging out with friends which she reported being able to have fun and stay in the moment. Client reported current stressor is getting her hours cut at work which increases financial stress. Client seemed to benefit from support from peers. Client to continue IOP to increase healthy coping, improve view of self, and prevent decompensation.
--- NOTE | 2022-04-13 10:05 | BH.SGPN.GN ---
Behaviors/Verbalizations/Mental Status: []Pt alert and oriented, disheveled appearance. Eye contact good. Motor activity appropriate. Speech within normal limits. Affect congruent-smiling, mood euthymic and anxious. Thoughts linear, logical, no signs of hallucinations or delusions. Client Response/Progress/Benefit: []Pt attentive during psychoeducation and participated in group activity. Participated in interactive group discussion on internal and external barriers to mental health progress. Group identified examples of internal barriers as; negative thoughts, anxiety, cognitive distortions, and past experiences. Pt caty a picture of their current reality which pt described as like I'm under water and there's no way to get out and I have supports, but I don't care enough to ask for help. Pt also caty their desired reality which pt using my supports and breaking down my problems. Pt also reported she wants to get to the point where I leave my old self behind and have a new self. Benefited from increased awareness of current barriers to progress as well as current/desired realities. Pt will continue IOP tx to prevent decompensation, gain healthy coping skills, and improve daily functioning. Narrative Note: []
--- NOTE | 2022-04-13 11:10 | BH.SGPN.GN ---
Behaviors/Verbalizations/Mental Status: [] Eye contact is good. Motor activity is appropriate. Appearance is casual. Speech is Appropriate. Mood is depressed. Affect is flat. Thoughts are linear and logical. No evidence of psychosis. Client Response/Progress/Benefit: [] Pt was an active participant in group discussions. Attentive during psychoeducation. Engaged in experiential group activity. Able to identify barriers to desired reality which include: isolation, negative thoughts, and poor view of self. Participated as group brainstormed ideas on how to cope with internal barriers that can keep individuals stuck. Benefited from group by identifying obstacles and solutions to desired reality.? Will continue in IOP to maintain safety, increase healthy coping, and prevent decompensation. Narrative Note: []
--- NOTE | 2022-04-14 10:15 | BH.SGPN.GN ---
Behaviors/Verbalizations/Mental Status: [] Client alert and oriented, casually dressed and groomed. Eye contact good. Motor activity appropriate. Speech within normal limits. Affect constricted, mood anxious. Thoughts linear, logical, no signs of hallucinations or delusions. Client Response/Progress/Benefit: [] Client responded well to session AEB listening attentively to others and participating in group activity. Client still struggling to share in group dynamic. Group provided examples of benefits of having social support, including: validation, increased confidence, and better mental health. Group discussed the barriers to accessing support and different forms of support that make up our safety net. Client participated in experiential activity illustrating the impact communication, boundaries, and patience play in creating healthy support systems. Client appeared to benefit from increased knowledge of the benefits of social support and greater self-awareness. Will continue IOP tx to prevent decompensation, increase utilization of healthy coping skills, and improve overall functioning. Narrative Note: []
--- NOTE | 2022-04-14 11:15 | BH.SGPN.GN ---
Behaviors/Verbalizations/Mental Status: [] Client alert and oriented, casually dressed and groomed. Eye contact good. Motor activity appropriate. Speech within normal limits. Affect congruent, mood anxious Thoughts linear, logical, no signs of hallucinations or delusions. Client Response/Progress/Benefit: [] Client was an active participant throughout AEB presenting attentive and taking notes. Client is still struggling to share in a group environment. Client processed emotions felt in the activity and how they coped in the moment. Client indicated after identifying what type of supports she receives, she gained awareness that she could benefit from more tangible supports. Client identified steps to achieve this by asking for help, get out more, and realizing when needing support. Client shared increasing tangible supports will help her know she is not alone and that someone can be there to help. Client seemed to benefit from identifying the type of support client needs to work on improving. Client recommended to continue IOP tx to increase healthy coping reduce isolation, and increase overall functioning. . Narrative Note: []
--- NOTE | 2022-04-14 15:49 | BH.MDN ---
Multi-Disciplinary Note - Note 45-min Individual Time Started:: 09:00 Date: 04/14/22 Time Stopped:: 09:50
--- NOTE | 2022-04-15 09:00 | BH.SGPN.GN ---
Behaviors/Verbalizations/Mental Status: []Eye contact is good. Motor activity is appropriate. Appearance is casual. Speech is within normal limits, but pt interrupting and engaging in side conversations during group. Mood is hyper. Affect is congruent. Thoughts are linear and logical. No evidence of psychosis. Reviewed daily check in sheet and no reports of suicidal ideations or intent. Client Response/Progress/Benefit: []Pt responded somewhat well to session, pt checked-in, but pt was highly distracted today and disrupting group by laughing and talking with a peer while others checked-in. Pt stated her wins were showing up for group today and using healthy distractions at work when pt felt frustrated. Therapist had a difficult time redirecting pt and had to tell pt to respect others by being quiet while others shared. Pt did not share any stressors today and shared feeling tender this morning. Pt will continue IOP tx to increase emotional regulation skills, reduce avoidance, and improve daily functioning. Narrative Note: []
--- NOTE | 2022-04-15 10:05 | BH.SGPN.GN ---
Behaviors/Verbalizations/Mental Status: [] Eye contact is good. Motor activity is appropriate. Appearance is casual. Speech is Appropriate. Mood is depressed. Affect is flat. Thoughts are linear and logical. No evidence of psychosis. Client Response/Progress/Benefit: [] Pt was an active participant in group discussion. Attentive during psychoeducation on cognitive distortions, the CBT triangle, and automatic thoughts. This group was very information heavy as therapist introduced 10 common cognitive distortions which included; All or Nothing Thinking, Overgeneralization, Mental Filter, Disqualifying the Positives, Jumping to Conclusions, Emotional Reasoning, Labeling, Catastrophizing, Shoulds/Musts, and Personalization. Pt along with peers did contribute examples of each distortion. Benefited from increased knowledge and insight into cognitive distortions and how they can impact mental health. Will continue in IOP to maintain safety, increase healthy coping, and prevent decompensation. Narrative Note: []
--- NOTE | 2022-04-21 09:00 | BH.SGPN.GN ---
Behaviors/Verbalizations/Mental Status: []Pt alert and oriented, casually dressed and groomed. Eye contact good, motor activity appropriate. Mood euthymic. Affect congruent. Speech within normal limits. Thoughts linear, logical, no signs of delusions or hallucinations. Reviewed pt's symptom tracker, no risk for SI plan or intent as pt's scores were within her baseline. Client Response/Progress/Benefit: [] Pt responded well to session, providing supportive statements and actively listening to peers. Pt reports feeling empty this morning, but pt's check-in was overall positive. Pt shared she missed group yesterday because she could not get out of bed and this led to feeling like crap the rest of the day. Pt reflected that in the past one day of isolation would have led to a week, so coming to IOP the next day is progress. Pt also cleaned out her car and has been spending more time with friends. Pt is stressed about her job cutting her hours and is looking to find a second job. Pt appeared to benefit from reflecting on use of opposite action and connecting with peers. Pt will continue IOP tx to reduce negative thinking, improve daily functioning, and further decrease depressive symptoms. Narrative Note: []
--- NOTE | 2022-04-22 10:10 | BH.SGPN.GN ---
Behaviors/Verbalizations/Mental Status: []Pt alert and oriented, casually dressed and groomed. Eye contact good. Motor activity appropriate. Speech within normal limits. Affect congruent, mood euthymic. Thoughts linear, logical, no signs of hallucinations or delusions. Client Response/Progress/Benefit: []Pt was a mostly passive?participant in group discussion, but took notes and was active in activity. Group worked together to identify benefits of healthy relationships which include; improves mental health, encouragement, motivation, accountability, validation, connection, someone to share experiences with, and personal growth. Group identified factors that lead to unhealthy relationships which included; co-dependence, gaslighting, not addressing issues, name-calling, and doing only what others want.?Pt nodding a lot during session. Actively participated in group experiential activity and expressed ideas to group. Benefited from increased insight and awareness of benefits of healthy relationships and factors that contribute to unhealthy relationships. Will continue in IOP tx to promote the use of healthy coping skills, further reduce depressive symptoms, and improve overall functioning. ? Narrative Note: []
--- NOTE | 2022-04-22 13:51 | BH.MDN ---
Multi-Disciplinary Note - Note 30-min Individual Time Started:: 09:00 Date: 04/22/22 Time Stopped:: :30
--- NOTE | 2022-04-23 09:00 | BH.SGPN.GN ---
Behaviors/Verbalizations/Mental Status: [] Client alert and oriented, casually dressed and groomed. Eye contact good. Motor activity appropriate. Speech within normal limits. Affect constricted, mood euthymic, Thoughts linear, logical, no signs of hallucinations or delusions. Reviewed client?s symptom tracker, no risk for suicidal ideation, plan, or intent as of 04/23/22 Client Response/Progress/Benefit: [] Client responded well to group by actively participating throughout group and seems to have adjusted to group environment. Client shared she has been more motivated to show to work instead of make excuses not to go and viewed coming here today as a win with not wanting too initially, but shared she feels better when she does. Client said she is facing stressor of needing to fix her breaks, but overall is feelign content today. Client seemed to benefit from feedback from group members and validation. She will continue IOP tx to increase coping skills, reduce irritability, and increase overall functioning. Narrative Note: []
--- NOTE | 2022-04-23 10:00 | BH.SGPN.GN ---
Behaviors/Verbalizations/Mental Status: [] Eye contact is good. Motor activity is appropriate. Appearance is casual. Speech is Appropriate. Mood is euthymic. Affect is congruent. Thoughts are linear and logical. No evidence of psychosis. Client Response/Progress/Benefit: []Client was an active participant during interactive group discussions. Attentive during psychoeducation on the six types of boundaries (physical, emotional, intellectual, sexual, time, and material) AEB note-taking. Along with peers contributed to interactive discussion on defining what a boundary is in mental health. Client along with peers identified challenges to setting boundaries which included; fear of other's response, guilt, fear of rejection, fear of disappointing the other person, etc. Client along with peers identified the benefits to setting boundaries such as feeling empowered, decreased stress, and increased time for self-care. Group discussed the mental health benefits to establishing boundaries at work, school, and home. Client benefited from increased awareness and insight on the importance/benefit to setting health boundaries. Will continue in IOP to increase positive self image increase coping skills and improve functioning. Narrative Note: []
--- NOTE | 2022-04-23 11:00 | BH.SGPN.GN ---
Behaviors/Verbalizations/Mental Status: [ ]Client alert and oriented, casually dressed and appropriately groomed. Eye contact good. Motor activity normal. Speech within normal limits. Affect congruent, mood anxious and euthymic. Thoughts linear and intact. no signs of delusions or hallucinations Client Response/Progress/Benefit: [ ] Client responded well to session AEB listening attentively to peers, increasing input provided in group setting, as well as taking notes throughout. Client contributed on psychoeducation on different boundary setting styles. Reports connecting most with ridged and porous styles of boundary setting, identifying difficulties with asking for help, but always saying yes when others ask for help with out putting down boundaries. Participated in small group discussion brainstorming various strategies for improving healthy boundary setting. Seemed to benefit from increased awareness of how different boundary styles can impact mental health. Will continue IOP tx to increase consistent application of skills, increase self-care and depression management. Narrative Note: []
--- NOTE | 2022-04-27 09:05 | BH.SGPN.GN ---
Behaviors/Verbalizations/Mental Status: [] Eye contact is good. Motor activity is appropriate. Appearance is casual. Speech is Appropriate. Mood is euthymic. Affect is full. Thoughts are linear and logical. No evidence of psychosis. Reviewed daily check in sheet and pt reports 1/5 for suicidal thoughts and 0/5 for intent Client Response/Progress/Benefit: [] Pt was an active participant in group discussions. Attentive. At times provides feedback that is not appropriate, and needs redirected. Daily symptom tracker notes 2/5 for depression and anxiety. Shared with the group that she was ?down? the whole weekend and ?didn?t want to leave the house?. Isolative behaviors. Increased depression. She could not identify a specific trigger, nor did she choose to elaborate on which skills she implemented when overwhelmed. She reports that today is ?better? and she hopes to maintain. Current stressor is work. No progress noted. Benefited from group support and encouragement. Will continue in IOP to maintain safety, prevent decompensation, and increase healthy coping. Narrative Note: []
--- NOTE | 2022-04-27 10:10 | BH.SGPN.GN ---
Behaviors/Verbalizations/Mental Status: []Pt alert and oriented, neatly dressed and groomed. Eye contact good. Motor activity appropriate. Speech within normal limits. Affect full, mood euthymic. Thoughts linear, logical, no signs of hallucinations or delusions. Client Response/Progress/Benefit: []Pt was a very active participant in group discussions and activity. Attentive during psychoeducation and giving a lot of personal examples of how her perspective has shifted. Pt along with peers were able to identify several negatives on the picture given to the group. Pt and peers also identified positives in the picture and made the connect that finding positives is much more difficult. Interactive discussion on the definition of perspective, how perspective is formed, and why perspective is important in treatment. Pt along with peers also identified that perspective can either motivate and encourage treatment or be a barrier to receiving help. Pt spoke on how she had a negative perspective towards treatment initially and this changed after connecting with peers in IOP. Will continue in IOP to promote gains, further decrease negative thinking, and increase consistent use of healthy coping skills. Narrative Note: []
--- NOTE | 2022-04-27 11:10 | BH.SGPN.GN ---
Behaviors/Verbalizations/Mental Status: []Pt alert and oriented, neatly dressed and groomed. Eye contact good. Motor activity appropriate. Speech tangential. Affect full, mood euthymic. Thoughts linear, logical, no signs of hallucinations or delusions. Client Response/Progress/Benefit: []Pt was attentive and contributed in small and larger group discussion. Pt completed strengths exploration worksheet and identified personal strengths to include: communication, honesty, leadership, and humor. Pt able to acknowledge how these strengths are helping her and can continue to help pt in her mental health journey. Pt shared that working to recognize these personal strengths more consistently will help improve pt?s mood and increase self-worth. Shared wanting to focus on fostering personal strengths by writing down her wins and allowing herself to talk about those wins with others. Benefited from identifying personal strengths and strategies for enhancing use of identified strengths. Pt to continue IOP tx to increase self-confidence, further reduce negative thinking patterns, and improve daily functioning. Narrative Note: []
--- NOTE | 2022-04-28 09:00 | BH.SGPN.GN ---
Behaviors/Verbalizations/Mental Status: [] Eye contact is good. Motor activity is appropriate. Appearance is casual. Speech is Appropriate. Mood is euthymic. Affect is full. Thoughts are linear and logical. No evidence of psychosis. Reviewed daily check in sheet and pt reports 08/30 for suicidal thoughts and 09/03 for intent. This is baseline. Client Response/Progress/Benefit: [] Pt was an active participant in group discussion. Needed redirection to stay on topic, however, was attentive. Emotion for today is neutral. Daily symptom tracker notes 10/04 for depression and irritability. Mental health win was ?I wore a different outfit today?. She typically wears a black hoodie and pants and today she is dressed in more color. She shared how this can benefit her mental health and why this was a goal she set for herself. She did not share much except to elaborate on some superficial topics. She did have a ?good day at work? yesterday in which she was able to be social and implement skills. Progress noted per pt report. Benefited from group support, encouragement, and feedback from peers. Will continue in IOP to maintain gains, increase healthy coping, and maintain safety. Narrative Note: []
--- NOTE | 2022-04-28 10:50 | BH.SGPN.GN ---
Behaviors/Verbalizations/Mental Status: [] Client alert and oriented, casually dressed and groomed. Eye contact good. Motor activity appropriate. Speech within normal limits. Affect congruent, mood euthymic. Thoughts linear, logical, no signs of hallucinations or delusions. Client Response/Progress/Benefit: []Client responded well to session, contributing to discussion and engaged during the activity. Group identified the benefits of change which included: personal growth, improving mental health, experiencing more, and better relationships. Worked with the group to identify barriers to change, which included: uncomfortable emotions such as anxiety and depression, lack of motivation, lack of energy, and confidence. Client shared personal barriers to chage being feeling unworthy and feelings of being overwhelmed. Client participated along with group in activity where they identified and discussed the emotions related to change. Client participated in discussion on the change process and personal experiences with implementing change in past. Benefited from increased awareness and understanding of emotions, benefits, and barriers related to change. Will continue IOP tx to continue to combat distortions, increase self worth, and increase overall functioning. Narrative Note: []
--- NOTE | 2022-04-28 14:52 | BH.MDN ---
Multi-Disciplinary Note - Note 45-min Individual Time Started:: 11:00 Date: 04/28/22 Time Stopped:: 11:40
--- NOTE | 2022-04-29 13:19 | BH.TPR ---
Treatment Plan Review Date of Admission:: 04/07/22 Date of Treatment Plan Review:: 04/26/22 Admitting Diagnoses:: 1. Major depressive disorder, recurrent, severe without psychosis. 2. Generalized anxiety disorder. 3. Body dysmorphic disorder. 4. Eating disorder, NOS. 5. Strong cluster B traits Current Diagnoses:: 1. Major depressive disorder, recurrent, severe without psychosis F33.2. 2. Generalized anxiety disorder. 3. Body dysmorphic disorder. 4. Eating disorder, NOS. 5. Strong cluster B traits Patient's Response to Treatment:: Pt initially reported being hesitant about group therapy and was a passive participant during group sessions. In the last week and a half pt has taken a more active role in group participation and is verbalizing many benefits to being in IOP. Pt mostly consistent with her attendance. Engages in individual therapy and does well with trying to apply skills outside treatment. Status of Current Problems and Symptoms: Client does report decrease in her depression and anxiety since starting IOP. She does report mild depressive and anxious symptoms. Client did no show one day of IOP last week due to feeling unmotivated and depressed. Client overall is reporting improved daily functioning, decreased isolation, and does not report any suicidal ideation. Problem #1 Problem Name:: Depression Status of Goals:: obj 1 - partially met, ongoing work encouraged. Client can identify several healthy coping skills. Client reports spending more time with healthy friends, following through with her goals, challenging negative thinking, and using opposite action. Problem #2 Problem Name:: Anxiety
== END 2022-04-29 23:59 ==
LOC: BHIOP 08:00
PROVIDERS: Visit Provider Psychiatry & Neurology Psychiatry
DX: F33.2 Major depressive disorder, recurrent severe without psychotic features (principal); F41.1 Generalized anxiety disorder; F45.22 Body dysmorphic disorder; F50.9 Eating disorder, unspecified; R45.851 Suicidal ideations; F17.200 Nicotine dependence, unspecified, uncomplicated; Z79.899 Other long term (current) drug therapy
CPT/HCPCS: S9480; 90832; 90834; 90853

== ENCOUNTER 2022-04-30 07:43 | Outpatient (RCR) | payer SELFPAY ==
[2022-04-30 00:44] VITALS: BP 132/92; PULSE 64
--- NOTE | 2022-05-01 09:05 | BH.SGPN.GN ---
Behaviors/Verbalizations/Mental Status: [] Eye contact is good. Motor activity is appropriate. Appearance is casual. Speech is Appropriate. Mood is euthymic. Affect is full. Thoughts are linear and logical. No evidence of psychosis. Reviewed daily check in sheet and no reports of suicidal ideations or intent Client Response/Progress/Benefit: [] Pt was an active participant in group discussion. Attentive. Daily symptom tracker notes / for depression and irritability. Mental health wins was that ? I spent time with my family?. Briefly shared the importance of her family in her mental health and overall well-being. Emotion for today is neutral. Shared that she is avoiding certain events, people, and responsibilities which she knows is not healthy not beneficial for her mental health. Insight into the behaviors and reasons behind it however struggles to make necessary changes. Group provided feedback, encouragement, and support which was beneficial. Will continue in IOP to maintain progress, increase healthy coping, and prevent decompensation. Narrative Note: []
--- NOTE | 2022-05-01 09:57 | BH.SGPN.GN ---
Behaviors/Verbalizations/Mental Status: []Pt alert and oriented, casually dressed and groomed. Eye contact good. Motor activity restless. Speech interrupting at times but normal rate and tone. Affect congruent, mood neutral. Thoughts linear, logical, no signs of hallucinations or delusions. Client Response/Progress/Benefit: []Pt participated at times during the group discussion. Attentive during psychoeducation. Participated in experiential activity. Pt contributed during interactive discussion on the consequences of unhealthy expression of emotions.? Attentive while peers identified several consequences which included; pushing people away, ?exploding,? and losing relationships. Attentive during interactive discussion on common potholes to effectively communicating and pt identified personal ones such as assumptions, over sharing, and deflecting. Pt was able to relate and make connections between the experiential activity and the overall topic, reported feeling anxious and frustrated, but pt wanted to push herself out of her comfort zone. Benefited from increased awareness of how stress and emotions can impact one's ability to communicate. Will continue in IOP to increase use of healthy coping skills, increase impulse control, and improve daily functioning. ? Narrative Note: []
--- NOTE | 2022-05-01 11:05 | BH.SGPN.GN ---
Behaviors/Verbalizations/Mental Status: []Pt alert and oriented, casually dressed and groomed. Eye contact good. Motor activity appropriate. Tone of voice WNL, but pt using inappropriate language and engaging in side conversations. Affect constricted, mood neutral. Thoughts linear, logical, no signs of hallucinations or delusions. Client Response/Progress/Benefit: []Pt engaged in session AEB pt listening attentively to peers. Attentive during psychoeducation on 4 zones of regulation. Pt able to identify feelings and behaviors for each zone.? Pt identified coping skills one can use to support self in each zone. Pt stated belief that pt is in the green zone today as pt is ?neutral? currently. Pt reports going for a drive or spending time with friends will keep pt in the green zone today. Benefited from increased education on zones of regulation or stages of alertness for emotions and healthy coping skills to use for each zone. Pt will continue IOP tx to increase impulse control, improve mood stability, and improve emotional regulation skills. Narrative Note: []
--- NOTE | 2022-05-05 10:05 | BH.SGPN.GN ---
Behaviors/Verbalizations/Mental Status: [] Client alert and oriented, neatly dressed and groomed. Eye contact good. Motor activity appropriate. Speech within normal limits. Affect congruent, mood euthymic. Thoughts linear, logical, no signs of hallucinations or delusions. Client Response/Progress/Benefit: [] Client was an active participant in group discussions. Attentive during psychoeducation on 4 types of conflict styles (Competing, Collaborating, Avoiding, and Accommodating). Worked with group to define conflict and identify how conflict is helpful. With peers identified barriers to addressing or managing conflict which included: fear of upsetting others, avoidance, high emotions, and poor communication. Client believes she uses avoidant and accommodating styles the most with reporting that if she can't avoid she will do whatever to avoid conflict. Client shared this style leads to client feeling like crap. Benefited from group due to increase insight and awareness of benefits to conflict, conflict styles, and obstacles to managing conflict. Will continue in IOP to utilize positive coping skills, increase emotional regulation, and increase self-esteem. Narrative Note: []
--- NOTE | 2022-05-05 11:05 | BH.SGPN.GN ---
Behaviors/Verbalizations/Mental Status: [] Client alert and oriented, neatly dressed and groomed. Eye contact good. Motor activity appropriate. Speech within normal limits. Affect congruent, mood euthymic and irritable. Thoughts linear, logical, no signs of hallucinations or delusions. Client Response/Progress/Benefit: [] Client engaged in session AEB contributing to discussion and engaging in activity. Client did well to review current conflict style and its impact on mental health. Attentive during discussion on strategies for more effectively managing conflict in personal life. Client participated in activity and did well to be assertive and collaborating. Client given handout on fair fighting rules. Client indicated that she was going to work on no yelling when faced with conflict. Client shared that she always gets loud even when she doesn't mean to and finds that it causes the other person to get loud as well. Appeared to benefit from gaining strategies to help client better manage conflict. Will continue IOP tx to reduce negative thinking patterns, increase overall functioning, and increase self worth. Narrative Note: []
--- NOTE | 2022-05-06 11:16 | BH.COMM ---
Communication Note - Communication with Client Communication Note: Pt did not show or call to cancel for IOP today. Left message.
--- NOTE | 2022-05-08 11:10 | BH.SGPN.GN ---
Behaviors/Verbalizations/Mental Status: []Pt alert and oriented, casually dressed and groomed. Eye contact good. Motor activity appropriate. Speech loud. Affect congruent, mood agitated and anxious. Thoughts linear, logical, no signs of hallucinations or delusions. Client Response/Progress/Benefit: []Pt receptive of session, engaged throughout AEB pt actively listening and contributing to discussion, as well as taking notes.? Pt participated in the experiential activity and did well to communicate ideas with peers and manage emotions. Pt identified she felt frustrated and anxious and wanted to quit, but pt was able to sit with the uncomfortable. Pt and group processed how the emotions and perspective of the group impacted the activity. Group worked together to identify different coping skills to help manage pitfalls. Pt identified pitfalls they struggle with such as wanting to give up when angry and making assumptions. Pt plans to work on these pitfalls by setting one intention a day to give pt motivation and direction. Benefited from identifying personal pitfalls and strategies to overcome these pitfalls. Will continue IOP tx to improve mood stability, increase communication skills, and further improve daily functioning. Narrative Note: []
--- NOTE | 2022-05-08 13:54 | BH.MDN ---
Multi-Disciplinary Note - Note 45-min Individual Time Started:: 09:05 Time Stopped:: 09:50
--- NOTE | 2022-05-13 14:05 | BH.COMM ---
Communication Note - Communication with Client Communication Note: Client no showed/no called today. Client was supposed to meet with IOP psychiatrist. Attempted to contact client, no answer and voicemail box is full.
--- NOTE | 2022-05-14 13:43 | BH.COMM ---
Communication Note - Communication with Client Communication Note: Client no showed/no called. Therapist talked with client over the phone in the afternoon and client reported she hasn't been here due to be sick. Therapist reiterated importance of client communicating with IOP when she can't make it to group. Client stated she likely will not be coming to IOP tomorrow if she still feels sick. Client reported she will come next week on Wednesday, Wednesday and Wednesday.
--- NOTE | 2022-05-22 11:00 | BH.SGPN.GN ---
Behaviors/Verbalizations/Mental Status: []Pt alert and oriented, disheveled appearance. Eye contact good. Motor activity appropriate. Speech within normal limits. Affect full, mood dysthymic. Thoughts linear, logical, no signs of hallucinations or delusions. Client Response/Progress/Benefit: []Pt was an active participant in group discussion. Participated in their small group and was attentive during group psychoeducation on growth mindset vs fixed mindset. Pt and peers identified and shared examples of growth mindset. Pt participated in interactive discussion and practiced changing a fixed mindset thought to a growth mindset thought. Pt reframed his fixed thought of ?I?m fine I?m okay? and challenged this with ?I?m actually not okay and I need to be honest.? Benefited from increased awareness and insight of growth mindset and strategies to change from fixed mindset thoughts to growth mindset thoughts. Plan to continue in IOP tx as pt recently decompensated and missed almost two weeks of group. Pt can benefit from reinforcing healthy coping skills and improving daily functioning. Narrative Note: []
--- NOTE | 2022-05-22 14:55 | BH.MDN ---
Multi-Disciplinary Note - Note 45-min Individual Time Started:: 10:00 Date: 05/22/22 Time Stopped:: 10:40
--- NOTE | 2022-05-25 09:00 | BH.SGPN.GN ---
Behaviors/Verbalizations/Mental Status: []Pt alert and oriented, disheveled appearance. Eye contact good. Motor activity appropriate. Speech within normal limits. Affect congruent, mood euthymic. Thoughts linear, logical, no signs of hallucinations or delusions. Reviewed pt?s symptom tracker, no risk for suicidal ideation, plan, or intent as of Client Response/Progress/Benefit: [] Pt responded well to session, attentive and engaged. Pt reports feeling happy this morning, but when she woke up she felt negative. Pt used self-talk and challenging her perspective this morning and this helped. Pt stated taking her medication again and pt got to spend time with her niece over the weekend. Pt is stressed about her car today, but overall pt shares feeling positive. Appeared to benefit from connecting with peers and reflecting on her use of thought challenging. Pt will continue IOP tx to increase the consistently of using healthy coping skills, reduce negative thinking, and improve mood stability. Narrative Note: []
--- NOTE | 2022-05-25 10:10 | BH.SGPN.GN ---
Behaviors/Verbalizations/Mental Status: []Client alert and oriented, casually dressed and groomed. Eye contact good. Motor activity appropriate. Speech normal. Affect congruent, mood euthymic, Thoughts linear, logical, no signs of hallucinations or delusions. Client Response/Progress/Benefit: []Client was engaged participant AEB listening attentively to others and providing input in group. Attentive during psychoeducation on communication styles. Assisted group with identifying barriers of effective communication which included: ?assumptions, shutting down, and mood.? Client identified they most often use aggressive or passive-aggressive communication styles, which often leads to increased loneliness, fear, and anger.? Client reports using aggressive communication when feeling they are not being heard. Reports trying to be more assertive within interpersonal relationships. Benefited from increased awareness of different communication barriers, styles, and the importance of communicating effectively to improve mental wellness. Will continue IOP tx to prevent decompensation and maintain gains, as well as increase healthy communication, and stabilize functioning. Narrative Note: []
--- NOTE | 2022-05-25 10:10 | BH.SGPN.GN ---
Behaviors/Verbalizations/Mental Status: []Client alert and oriented, casually dressed and groomed. Eye contact good. Motor activity appropriate. Speech within normal limits. Affect congruent, mood anxious and euthymic, Thoughts linear, logical, no signs of hallucinations or delusions Client Response/Progress/Benefit: []Client responded well to session AEB client listening attentively to others and providing input during group discussion on the pay offs and costs of the different communication styles. Client recognizes negative impact on relationships when she doesn't use healthy communication style. Client did well in the activity to be assertive and ask for feedback. Recognizes if group wasn't able to actively listen to one another in the activity, they wouldn?t have been successful. Attentive during psychoeducation on interpersonal DBT skill ANIBAL. Client set a goal to work on being more assertive with goal of asking for what she needs from others more often. Client seemed to benefit from increasing awareness of healthy strategies to improve communication. Client will continue IOP tx to improve successful communication, regulate emotions, and prevent decompensation. Narrative Note: []
--- NOTE | 2022-05-26 09:00 | BH.SGPN.GN ---
Behaviors/Verbalizations/Mental Status: [] Client alert and oriented, casually dressed and groomed. Eye contact good. Motor activity appropriate. Speech within normal limits. Affect congruent, mood euthymic. Thoughts linear, logical, no signs of hallucinations or delusions. Reviewed client?s symptom tracker, no risk for suicidal ideation, plan, or intent as of 05/26/22. Client Response/Progress/Benefit: [] Client responded well to group by participating and being attentive in group. Reported that her emotion was grateful. Client shared plans to move to [place] and start a new job soon, but feeling stressed with the transition. Client indicated some money stress with paying for her car, but feeling confident it's all worked out. Client seemed to benefit from feedback from group members, along with giving tips and encouragement to peers. She will continue IOP tx to increase coping skills, increases self-esteem, and prevent decompensation. Narrative Note: []
--- NOTE | 2022-05-26 11:10 | BH.SGPN.GN ---
Behaviors/Verbalizations/Mental Status: [] Client alert and oriented, casually dressed and groomed. Eye contact good. Motor activity appropriate. Speech within normal limits. Affect congruent, mood euthymic. Thoughts linear, logical, no signs of hallucinations or delusions. Client Response/Progress/Benefit: [] Client was an active participant throughout AEB contributing to discussion, providing personal examples, and taking notes. Client provided input during discussion on the types of support our supports can provide. Client able to identify current support system and barriers that get in the way of using supports by drawing out their own support net. Client reported after identifying what type of supports they receive; they gained awareness that they could benefit from more emotional and social supports. Client identified steps to achieve this by spending less time isolating, going out more and using the gm. Client shared increasing these supports will help her have more balance. Client seemed to benefit from identifying the type of support client needs to work on improving. Client recommended to continue IOP tx to prevent decompensation, increase use of coping skills, and increase emotional regulation skills. Narrative Note: []
--- NOTE | 2022-05-26 14:56 | BH.MDN ---
Multi-Disciplinary Note - Note 45-min Individual Time Started:: 10:20 Date: 05/26/22 Purpose of session/treatment goals addressed:: Purpose of session was to address goals 1 and 2 from MTP. Eye Contact:: Good Motor Activity:: Appropriate Appearance:: Casual Speech:: Appropriate Mood:: Euthymic Affect:: Full, Congruent Thoughts:: Linear, Logical, No evidence of hallucinations/delusions noted Staff Interventions:: CBT techniques, mindfulness skills, strengths perspective, goal setting, other - reviewed healthy coping skills. Discussed importance of thinking decisions through. Client Response:: Client reported she has been doing really well the past few days. Client stated she did have a rough moment last night because saw pictures of her time with her ex-girlfriend which led to her reminiscing. Client stated she was able to get herself out of the negative moment by using distraction. Client reported she has been talking with one of her good friends and recently hung out with her. 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 Client reported she is considering this because would like to make enough money to pay off her car and be able to travel. Client stated she did discuss this with her family whom she stated is supportive. Therapist assisted client with identifying pros and cons of potential job. Client reported there is the possibility of her just staying at her current job and getting a second job locally. Connected with therapist encouragement to think through any decision to make sure she considers pros/cons. Client reported she has been not isolating by spending time with friends and family. Client reported use of grounding tools to manage symptoms as well. Client stated she has not contacted [facility] to get established with counseling. Cliient reported her goals are to call [facility], go to jobs and family services to see if qualify for medicaid and cancel gym membership she doesn't use. Risks/Concerns:: Denies suicidal ideation, plan or intention to date. Future oriented. Progress Toward Goals/Plan:: Progress noted with client reporting improved mood, taking medications consistently, decreased isolation, and improved use of healthy coping skills. Client continues to report stress over money and needing more hours at her current job. Client's ideas and thoughts vary each day, but seems to be taking time to think each idea through instead of impulsively action upon her ideas. Client is to continue IOP to continue use of healthy coping, challenge negative thinking and prevent decompensation. Time Stopped:: 11:00
--- NOTE | 2022-05-27 14:17 | BH.COMM ---
Communication Note - Communication with Client Communication Note: Client was scheduled to meet with [facility] psychiatrist at 11:30am this morning. Client no showed/no called. Client has been informed if she misses psychiatry next week she will be discharged from program due to noncompliance of [facility] requirements for seeing psychiatry every 30 days.
--- NOTE | 2022-05-27 14:17 | BH.COMM_ITS ---
Communication Note - Communication with Client Communication Note: Client was scheduled to meet with [facility] psychiatrist at 11:30am this morning. Client no showed/no called. Client has been informed if she misses psychiatry next week she will be discharged from program due to noncompliance of [facility] requirements for seeing psychiatry every 30 days.
--- NOTE | 2022-05-29 09:02 | BH.SGPN.GN ---
Behaviors/Verbalizations/Mental Status: [] At times when providing feedback to other peers she can utilize more aggressive communication style which she seems to lack insight into how this could negatively impact relationships. Pt eye contact good, casually dressed, motor activity appropriate, speech normal rate and tone, mood euthymic, congruent affect, thoughts linear and intact, no evidence of delusions or hallucinations. Reviewed pt's symptom tracker, no indication of suicidal ideation or intent. Client Response/Progress/Benefit: [] Client respond well to session as evidenced by her listening attentively to others and sharing thoughts and feelings. Client reported mental positive as getting a full schedule for her job which has relieved some anxiety about money. Stated additional months of positive as being able to potty train her dog. Client stated she also spent time with her grandma which was enjoyable. Client reported her current stressor is having to get the dentist to get braces. Progress noted with client reported improved mood. Client to continue IOP to maintain gains, challenge negative thoughts, and prevent decompensation. Narrative Note: []
--- NOTE | 2022-05-29 10:10 | BH.SGPN.GN ---
Behaviors/Verbalizations/Mental Status: []Eye contact is fair to good. Motor activity is appropriate. Appearance is casual. Speech is Appropriate. Mood is depressed, irritable. Affect is constricted. Thoughts are linear and logical. No evidence of psychosis. Client Response/Progress/Benefit: []Pt was a semi-active participant in group discussions. Attentive during psychoeducation and participated in interactive discussions in which group defined self-care, discussed the benefits to self-care, and identified common myths surrounding self-care. Myths identified included; self-care is selfish, self-care is just personal hygiene, self-care should be fun, self-care is too time consuming, and I don?t deserve it. Pt and peers broke into smaller group and worked together to bust the myths associated with self-care. ?At times pt struggles with remaining on topic; however, responded well to redirection. Benefited from increased awareness of the self-care and its benefits. Will continue in IOP to prevent decompensation, increase healthy coping, and improve functioning. Narrative Note: []
--- NOTE | 2022-05-29 11:10 | BH.SGPN.GN ---
Behaviors/Verbalizations/Mental Status: []Pt alert and oriented, casually dressed and groomed. Eye contact good. Motor activity appropriate. Speech within normal limits. Affect congruent, mood irritable. Thoughts linear, logical, no signs of hallucinations or delusions. Client Response/Progress/Benefit: []Pt engaged participant AEB completing self-assessment worksheet, but pt was mostly quiet during discussion. Participated throughout group discussion on the various areas of self-care. Pt completed worksheet which identified current self-care practices and what self-care activities pt wants to start using. Pt selected social self-care to begin practicing more consistently. Pt plans to do this by scheduling time to hang out with her current friends and exploring ways to make new friends. Appeared to benefit from completing the self-care evaluation and gaining insights into current self-care practices, as well as identifying areas in which pt would like to improve upon. Will continue IOP tx to increase emotional regulation skills, improve impulse control, and improve mood stability. Narrative Note: []
--- NOTE | 2022-06-30 21:20 | BH.TPR ---
Treatment Plan Review Date of Admission:: 04/07/22 Date of Treatment Plan Review:: 04/30/22 Admitting Diagnoses:: 1. Major depressive disorder, recurrent, severe without psychosis. F33.2 2. Generalized anxiety disorder. 3. Body dysmorphic disorder. 4. Eating disorder, NOS. 5. Strong cluster B traits Current Diagnoses:: 1. F33.2 Major depressive disorder, recurrent, severe without psychosis. 2. Generalized anxiety disorder. 3. Body dysmorphic disorder. 4. Eating disorder, NOS. 5. Strong cluster B traits Patient's Response to Treatment:: Pt initially reported being hesitant about group therapy and was a passive participant during group sessions. In the last week and a half pt has taken a more active role in group participation and is verbalizing many benefits to being in IOP. Pt mostly consistent with her attendance. Engages in individual therapy and does well with trying to apply skills outside treatment. Status of Current Problems and Symptoms: Client does report decrease in her depression and anxiety since starting IOP. She does report mild depressive and anxious symptoms. Client did no show one day of IOP last week due to feeling unmotivated and depressed. Client overall is reporting improved daily functioning, decreased isolation, and does not report any suicidal ideation. Problem #1 Problem Name:: Depression Status of Goals:: obj 1 - partially met, ongoing work encouraged. Client can identify several healthy coping skills. Client reports spending more time with healthy friends, following through with her goals, challenging negative thinking, and using opposite action. Obj 2 - met, ongoing work encouraged. Pt's DSM 5 cross cutting measure at mid-point demonstrates a 57% reduction in depressed symptoms since admission. Team Recommendations:: Team recommends pt to continue current treatment goals to reinforce skills and see consistent treatment progress. Problem #2 Problem Name:: Anxiety Status of Goals:: obj 1 - partially met, ongoing work encouraged. Client can identify several calming skills like belly breathing, sitting with the uncomfortable, and grounding tools. Obj 2 - not met, ongoing work encouraged. Pt's DSM 5 cross cutting measure at mid-point demonstrates a 40% reduction in anxious symptoms since admission. Team Recommendations:: Team recommends pt to continue current treatment goals to reinforce skills and see consistent treatment progress.
== END 2022-05-29 23:59 ==
LOC: BHIOP 07:43
PROVIDERS: Visit Provider Psychiatry & Neurology Psychiatry
DX: F33.2 Major depressive disorder, recurrent severe without psychotic features (principal); F41.1 Generalized anxiety disorder; F45.22 Body dysmorphic disorder; F50.9 Eating disorder, unspecified; Z79.899 Other long term (current) drug therapy
CPT/HCPCS: S9480; 90834; 90853

== ENCOUNTER 2023-01-15 17:42 | Emergency (ER) | payer SELFPAY ==
[2023-01-15 17:42] VITALS: BP 125/89; PULSE 88; RESP 16; TEMP 37; O2SAT 100; BMI 25.6
--- NOTE | 2023-01-15 18:11 | EDS_ITS ---
HPI <YING Cruz - Last Filed: 01/15/23 20:11> History of Present Illness Chief Complaint: Bite Narrative Narrative: Patient presenting today with a dog bite to her right middle finger that occurred earlier today. She was at a park walking her dog and was putting the dog in the car when a random dog approached her. He began jumping on the car and she tried to push him away and realized that he bit her right middle finger. She states that the dog was dirty and did not have an railway patrol officer, nor was he on a leash. She did go home and washed her hands well. She reports that throughout the day her finger has become painful and swollen and she has noticed yellow discharge coming out of the wound when she squeezes it. Her tetanus is not up-to-date. She denies any fever, chills, or other injury. PFSH <YING Cruz - Last Filed: 01/15/23 20:11> PFSH Medical History Body dysmorphic disorder Eating disorder, unspecified Generalized anxiety disorder Major depressive disorder, recurrent severe without psychotic features Home Medications ondansetron 4 mg disintegrating tablet 4 mg PO Q6H PRN nausea and vomiting #10 tabs 03/29/22 [Rx Last Taken Unknown] fluoxetine 10 mg capsule (Prozac) 10 mg PO DAILY 30 days #30 caps 04/08/22 [Rx Last Taken Unknown] amoxicillin 875 mg-potassium clavulanate 125 mg tablet 1 tab PO BID 10 days #20 tabs 01/15/23 [Rx Last Taken Unknown] Allergy/AdvReac Type Severity Reaction Status Date / Time No Known Allergies Allergy Verified 01/15/23 17:44 Surgical History History of tonsillectomy and adenoidectomy Social History Smoking Status: Current every day smoker tobacco type: cigarettes and e- cigarettes ROS <YING Cruz - Last Filed: 01/15/23 20:11> ROS ED Constitutional Constitutional ED: Denies chills or fever(s) Cardiovascular Cardiovascular: Denies chest pain Respiratory/Chest Respiratory/Chest: Denies cough or dyspnea Gastrointestinal Gastrointestinal: Denies abdominal pain, nausea or vomiting Musculoskeletal Musculoskeletal: Reports arthralgias; Denies myalgias Integumentary Reports Abrasions; Denies abscess or rash Neurologic Neurologic: Denies paresthesias or weakness EXAM <YING Cruz - Last Filed: 01/15/23 20:11> Physical Exam Const Vital Signs: 01/15/23 17:42 Temperature 98.6 F Temperature Source Temporal Pulse Rate 88 Respiratory Rate 16 Blood Pressure 125/89 H Blood Pressure Mean 101 Pulse Ox 100 Oxygen Delivery Method Room Air Positive well nourished, well developed and no apparent distress General Appearance ED: well developed HEENT Reports normocephalic and head/scalp atraumatic Mouth ED: Yes moist mucous membranes normal Eyes PERRL and EOMs intact bilaterally Neck full ROM and supple Chest Wall inspection of chest normal Resp normal respiratory effort and clear to auscultation bilaterally Cardio regular rate and regular rhythm GI soft to palpation, non-tender, non-distended and no masses Back/Spine normal ROM and normal to inspection Extremity normal to inspection and full ROM Extremity Narrative: Right middle finger has a small superficial puncture wound to the ventral aspect. She does have intact flexion and extension of the finger, but is not able to do it completely. Slight edema to the finger. Radial pulses 2+ and equal bilaterally, capillary refill intact, sensation intact. Neuro oriented x3, CN's II-XII intact bilaterally, moves all extremities, no focal motor deficits and no sensory deficits noted Sensorium / Orientation: awake and alert Psych mental status grossly normal and thought process normal Skin no rashes or lesions noted and no wounds <Dr. Susan Kumari MD - Last Filed: 01/15/23 19:05> Physical Exam Const Vital Signs: 01/15/23 17:42 Temperature 98.6 F Temperature Source Temporal Pulse Rate 88 Respiratory Rate 16 Blood Pressure 125/89 H Blood Pressure Mean 101 Pulse Ox 100 Oxygen Delivery Method Room Air MDM <YING Cruz - Last Filed: 01/15/23 20:11> [facility] Narrative Medical decision making narrative: Patient presenting today after being bit by a random dog on her right middle finger. She is well-appearing and in no acute distress. Vital signs are unremarkable. She has a superficial puncture wound to this finger. She is able to flex and extend the finger but not completely, however, there is no concern for flexor tenosynovitis at this time. There is mild swelling to the finger. Her tetanus is not up-to-date, we will update that here. I have talked about rabies prevention with patient and she does not want to pursue that at this time. The wound was cleansed and irrigated, bacitracin ointment was applied, the wound was covered with a bandage. She has been started on Augmentin with first dose here. She has been given a referral to hand surgery if this is to progress with strict return precautions. She will be discharged home in stable condition and is comfortable with plan. Radiography X-Ray: Read by ED Physician and Read by Radiologist Diagnostic Testing: Clinical Impression(s) from Imaging Studies Finger X-Ray 01/15/23 18:46 IMPRESSION: Mild soft tissue prominence without foreign body. There is no underlying articular osseous abnormality. Electronically Signed: Danilo Trejo DO at 19:07 EDT Reading Location ID and State: [facility] / [place] Tel [phone], Service support , <Dr. Susan Kumari MD - Last Filed: 01/15/23 19:05> MDM Radiography Diagnostic Testing: Clinical Impression(s) from Imaging Studies Finger X-Ray 01/15/23 18:46 IMPRESSION: Mild soft tissue prominence without foreign body. There is no underlying articular osseous abnormality. Electronically Signed: Danilo Trejo DO at 19:07 EDT Reading Location ID and State: [facility] / [place] Tel [phone], Service support , Treatment and Re-Evaluation Narrative: Patient seen and evaluated with SUKHJINDER. I personally interviewed and examined the patient. I was involved in all aspects of patient's orders, interpretation of results, and treatment. Patient presents secondary to dog bite to her right hand. She states was at the park with her dog. She was putting her dog in the car when a stray dog ran up behind her. She used her right hand to try to push the dog away and suffered a bite to the flexor portion of the right third finger. Patient sitting upright in bed no acute distress. Right upper extremity examination reveals bite wound approximately 3 mm in length over the flexor surface of the third finger. She does have mild edema noted. She is able to flex and extend although not quite fully in either direction. At this time there is no evidence of flexor tenosynovitis. Right third finger x-rays obtained to evaluate for radiopaque foreign body. On my interpretation I see no evidence of foreign body or bony injury. Will be thoroughly cleansed and irrigated. Antibiotics be started. Patient is given very strict instructions on return as well as follow-up with hand surgery if she has any concerns. It was relayed to her that she needs to carefully watch this wound to ensure no evidence of extension along the flexor tendon. Discharge Plan Triage Chief Complaint: Bite ED Midlevel Provider: Jocelyn Lee ED Provider: Susan Kumari Dx/Rx/DC Orders Clinical Impression: Dog bite of finger Instructions: ED Dog Bite Prescriptions: New amoxicillin-pot clavulanate 875-125 mg tablet 1 tab PO BID 10 Days Qty: 20 0RF No Action ondansetron 4 mg tablet,disintegrating 4 mg PO Q6H PRN (Reason: nausea and vomiting) Qty: 10 0RF fluoxetine [Prozac] 10 mg capsule 10 mg PO DAILY 30 Days Qty: 30 0RF Stand Alone Forms: ED Work / School Excuse Primary Care Provider: Care Physician,No Primary Referrals: Mariann Owen MD [Non-Staff] - 1-2 Days if not improving Care Physician,No Primary [Primary Care Provider] - Activity Restrictions/Additional Instructions: Follow-up with the hand surgeon I referred you to for any worsening of your symptoms. Keep an eye out for any signs of infection return if you notice any fever, chills, increased redness/swelling, pus-like discharge. Disposition Disposition: Home, Self Care Discharge Date/Time: 01/15/23 19:40
[2023-01-15] MEDS: Diphth,Pertuss(Acell),Tet Vac 0.5 ML Vial IM (18:22)
--- NOTE | 2023-01-15 18:46 | RAD_ITS ---
STUDY: X-RAY - RIGHT HAND, ATTENTION THIRD FINGER REASON FOR EXAM: Female, 22 years old. Dog bite. TECHNIQUE: 3 view(s) of the finger were obtained. COMPARISON: None. FINDINGS: Normal metacarpal head. Normal metacarpophalangeal joint. Normal proximal phalanx. Normal middle phalanx. Normal distal phalanx. Normal proximal interphalangeal joint. Normal distal interphalangeal joint. Mild soft tissue prominence. There is no foreign body. RAD/Finger(s) Min 2 Views IMPRESSION: Mild soft tissue prominence without foreign body. There is no underlying articular osseous abnormality. Electronically Signed: Danilo Trejo DO at 19:07 EDT ,
[2023-01-15] MEDS: Amox/Clavulanate 875 MG Tablet PO (19:34)
== END 2023-01-15 19:40 | disposition home or self-care (01) ==
PROVIDERS: Emergency Provider Emergency Medicine; Visit Provider Emergency Medicine
DX: S61.232A Puncture wound without foreign body of right middle finger without damage to nail, initial encounter (principal); F33.3 Major depressive disorder, recurrent, severe with psychotic symptoms; F17.210 Nicotine dependence, cigarettes, uncomplicated; W54.0XXA Bitten by dog, initial encounter; Y93.K1 Activity, walking an animal; Y92.830 Public park as the place of occurrence of the external cause; Z79.899 Other long term (current) drug therapy; F41.1 Generalized anxiety disorder; F17.290 Nicotine dependence, other tobacco product, uncomplicated; Z23 Encounter for immunization
CPT/HCPCS: 73140; 90471; 90715; 96372; 99283

== ENCOUNTER → 2023-05-14 | Outpatient (CLI) | payer SELFPAY ==
[2023-05-17 08:07] LABS: QNTFERON TB Mitogen Value > 10.00 IU/mL (.); QNTFERON TB Nil Value 0.04 IU/mL (.); QNTFERON TB1+ Ag Value 0.01 IU/mL (.); QNTFERON TB2+ Ag Value 0.05 IU/mL (.); QNTIFERON TB Positive Criteria Negative (Negative)
== END | disposition home or self-care (01) ==
LOC: MTLAB 13:48
PROVIDERS: Referring Provider Physician Assistant Surgical; Visit Provider Physician Assistant Surgical
DX: Z02.1 Encounter for pre-employment examination (principal)
CPT/HCPCS: 36415; 86480

== ENCOUNTER 2023-10-24 09:04 | Emergency (ER) | payer SELFPAY ==
[2023-10-24 09:05] VITALS: BP 118/78; PULSE 91; RESP 16; TEMP 36.9; O2SAT 99; BMI 24.6
--- NOTE | 2023-10-24 09:12 | RAD_ITS ---
STUDY: X-RAY CHEST REASON FOR EXAM: Female, 22 years old. cough TECHNIQUE: Single AP portable view of the chest. COMPARISON: 08/29/2021 FINDINGS: The lungs are clear and expanded. There is no demonstrated pleural abnormality. Normal size heart. Normal mediastinum and julien. Normal visualized pulmonary arteries. Normal visualized aortic arch and descending thoracic aorta. Normal visualized thoracic spine. Normal visualized ribs, clavicles, and shoulders. There is no demonstrated abnormality of the visualized soft tissue structures of the upper abdomen. RAD/Chest 1 View (Portable) IMPRESSION: Normal x-ray examination of the chest. Electronically Signed: Jose Luis Reynaga MD at 9:52 EST ,
--- NOTE | 2023-10-24 09:12 | EX.ED.DYSGE1 ---
HPI History of Present Illness Chief Complaint: General Illness Informant: patient Onset/Context/Timing Onset: Days (2 days) Context: Gradual Onset Narrative Narrative: Patient presents with cold symptoms that started last evening. She states she woke yesterday morning with a hoarse voice. Last evening she started developing body aches, fever, cough with green sputum production. She called off work today but needed a work note. She does state that she felt lightheaded last evening anytime she stood up. [facility] Medical History Body dysmorphic disorder Eating disorder, unspecified Generalized anxiety disorder Major depressive disorder, recurrent severe without psychotic features Allergy/AdvReac Type Severity Reaction Status Date / Time No Known Allergies Allergy Verified 10/24/23 09:05 Surgical History History of tonsillectomy and adenoidectomy Social History Smoking Status: Current every day smoker tobacco type: cigarettes and e-cigarettes ROS ROS ED Constitutional Constitutional ED: Reports fever(s) and subjective; Denies chills Eyes Eyes: Denies change in vision or discharge from eye(s) ENT ENT ED: Denies discharge from eye(s), rhinorrhea or sore throat Cardiovascular Cardiovascular: Denies chest pain or palpitations Respiratory/Chest Respiratory/Chest: Reports cough, dyspnea and sputum Gastrointestinal Gastrointestinal: Denies abdominal pain, nausea or vomiting Genitourinary Genitourinary ED: Denies dysuria Musculoskeletal Musculoskeletal: Reports myalgias; Denies back pain or extremity pain Integumentary Denies Abrasions or rash Neurologic Neurologic: Reports weakness; Denies headache(s) Psychiatric Psychiatric: Denies anxiety or depression Allergic/Immunologic Allergic/Immunologic ED: Denies lip swelling or urticaria EXAM Physical Exam Const Vital Signs: 10/24/23 09:05 10/24/23 09:17 Temperature 98.4 F Temperature Source Temporal Pulse Rate 91 Respiratory Rate 16 Respiratory Effort Normal Non-Labored Respiratory Pattern Normal Blood Pressure 118/78 Blood Pressure Mean 91 Pulse Ox 99 Oxygen Delivery Method Room Air Positive well nourished and well developed General Appearance ED: well developed HEENT Reports moist mucous membranes Eyes EOMs intact bilaterally Chest Wall inspection of chest normal and palpation of chest normal Resp normal respiratory effort and clear to auscultation bilaterally Cardio regular rate and regular rhythm GI non-tender Palpation: soft Extremity normal to inspection Neuro oriented x3 and no sensory deficits noted Motor Exam: strength 5/5 throughout Psych mental status grossly normal Skin no rashes or lesions noted MDM MDM MDM Narrative Medical decision making narrative: Swab for COVID, influenza, and RSV obtained. Portable chest x-ray will be obtained to evaluate for potential infiltrate. Radiography Diagnostic Testing: Clinical Impression(s) from Imaging Studies Chest X-Ray 10/24/23 09:12 IMPRESSION: Normal x-ray examination of the chest. Electronically Signed: Jose Luis Reynaga MD at 9:52 EST , Treatment and Re-Evaluation :: Portable chest x-ray per my interpretation was no evidence of focal infiltrate. COVID and RSV swab is negative, however patient is positive for influenza A. Test results are discussed with her. She will continue supportive care. I will write her a work note that she may return to work once free of fever for 24 hours. Discharge Plan Triage Chief Complaint: General Illness ED Provider: Susan Kumari Dx/Rx/DC Orders Clinical Impression: Influenza Instructions: ED Influenza (Adult) Stand Alone Forms: ED Work / School Excuse Primary Care Provider: Care Physician,No Primary Referrals: Gabrielle Tesfaye MD [Med Staff - [employer]] - As Needed Care Physician,No Primary [Primary Care Provider] - Disposition Disposition: Home, Self Care
--- OUTSIDE RECORDS SUMMARY | 2023-10-24 09:30 | XMS RPT_ITS | CCD ---
Author Name Unknown Address [address] [place] [address] Organization [facility] Results Test Name Value Interpretation Reference Range Facil ity Summary Purpose Family History No Family History Records FoundNo Family History Records Found Advance Directives No Advanced Directives Records FoundNo Advanced Directives Records Found Additional Source Comments INFORMATION SOURCE (unrecogn ized section and content) DATE CREATED AUTHOR AUTHOR'S TRENT GARCIA 07/06/2020 [facility] FOR RECORDS PERTAINING TO PATIENTS WHO ARE OR HAVE BEEN ENROLLED IN A CHEMICAL DEPENDENCY/SUBSTANCEABUSE PROGRAM, SOME INFORMATION MAY BE OMITTED. This clinical summary was aggregated from multiple sources. Caution should be exercised in using it in the provision of clinical care. This summary normalizes information from multiple sources, and as a consequence, information in this document may materially change the coding, format and clinical context of patient data. In addition, data may be omitted in some cases. CLINICAL DECISIONS SHOULD BE BASED ON THE PRIMARY CLINICAL RECORDS. [employer] [facility]. provides no warranty or guarantee of the accuracy or completeness of information in this document.
[2023-10-24 10:37] VITALS: BP 115/88; PULSE 84; RESP 16; TEMP 36.8; O2SAT 99
== END 2023-10-24 10:38 | disposition home or self-care (01) ==
PROVIDERS: Emergency Provider Emergency Medicine; Visit Provider Emergency Medicine
DX: J10.1 Influenza due to other identified influenza virus with other respiratory manifestations (principal); F17.210 Nicotine dependence, cigarettes, uncomplicated; F17.290 Nicotine dependence, other tobacco product, uncomplicated
CPT/HCPCS: 71045; 87631; 99282

== ENCOUNTER 2024-10-27 08:23 | Emergency (ER) | payer SELFPAY ==
[2024-10-27 08:24] VITALS: BP 120/82; PULSE 83; RESP 16; TEMP 36.7; O2SAT 100; BMI 24.4
--- NOTE | 2024-10-27 08:41 | EX.ED.DYSGE1 ---
HPI History of Present Illness Chief Complaint: Nausea/Vomiting/Diarrhea Informant: patient Narrative Narrative: 23-year-old female states she woke this morning with vomiting and diarrhea. She describes the vomiting as yellow in the diarrhea as brown water. The patient states that she has not had any fever cough runny nose sore throat. She denies any abdominal pain. No recent travel antibiotics well water etc. No known sick contacts. She states she was post to work today and tomorrow. PFSH PFS Medical History Eating disorder, unspecified Body dysmorphic disorder Generalized anxiety disorder Major depressive disorder, recurrent severe without psychotic features Home Medications ?Medication ?Instructions ?Recorded ?Last Taken ?Type ondansetron 4 mg disintegrating 4 mg PO Q6H PRN PRN Nausea #15 tabs 10/27/24 Unknown Rx tablet Allergy/AdvReac Type Severity Reaction Status Date / Time No Known Allergies Allergy Verified 10/27/24 08:42 Surgical History History of tonsillectomy and adenoidectomy Social History Smoking Status: Current every day smoker tobacco type: cigarettes and e-cigarettes ROS ROS ED Constitutional Constitutional ED: Denies chills, fever(s) or weight loss Eyes Eyes: Denies change in vision or diplopia ENT ENT ED: Denies ear pain, rhinorrhea or sore throat Cardiovascular Cardiovascular: Denies chest pain, orthopnea, palpitations or racing heartbeat Respiratory/Chest Respiratory/Chest: Denies cough, dyspnea or orthopnea Gastrointestinal Gastrointestinal: Reports diarrhea, nausea and vomiting; Denies abdominal pain Genitourinary Genitourinary ED: Denies dysuria, hematuria or urinary frequency Musculoskeletal Musculoskeletal: Denies arthralgias or myalgias Integumentary Denies abscess or rash Neurologic Neurologic: Denies headache(s) or weakness Psychiatric Psychiatric: Denies anxiety, depression, suicidal ideation or suicidal thoughts Endocrine Endocrinology: Denies polydipsia, polyphagia or polyuria Allergic/Immunologic Allergic/Immunologic ED: Denies mouth swelling, tongue swelling or urticaria EXAM Physical Exam Const Vital Signs: 10/27/24 08:24 Temperature 98.1 F Temperature Source Oral Pulse Rate 83 Respiratory Rate 16 Blood Pressure 120/82 H Blood Pressure Mean 94 Pulse Ox 100 Oxygen Delivery Method Room Air Positive well nourished and well developed General Appearance ED: well developed HEENT Reports normocephalic, head/scalp atraumatic and moist mucous membranes Eyes PERRL and EOMs intact bilaterally Neck no lymphadenopathy, supple and no JVD Resp normal respiratory effort and clear to auscultation bilaterally Cardio regular rate, regular rhythm and no murmurs GI non-tender and no masses Inspection: Negative for abdominal distention Auscultation: hyperactive bowel sounds Palpation: soft; Negative for tender, guarding or rebound tenderness present Back/Spine no CVA tenderness and normal ROM Extremity normal to inspection General Extremety ED: Negative for edema General Extremity: Negative for edema Neuro oriented x3 and CN's II-XII intact bilaterally Sensorium / Orientation: alert Motor Exam: strength 5/5 throughout Psych mental status grossly normal Mood & Affect: Negative for depressed or tearful Skin no rashes or lesions noted and no wounds MDM MDM MDM Narrative Medical decision making narrative: Differential diagnosis includes but not limited to pancreatitis biliary colic colitis diverticulitis bowel obstruction appendicitis volvulus Based on the patient's history and the physical exam she most likely has a viral gastroenteritis. Recommend Imodium and Zofran as needed. Encouraged oral hydration. Return if worsening or concerns work note will be given. History & Record Review Discussion w/independent historian: Patient Discharge Plan Triage Chief Complaint: Nausea/Vomiting/Diarrhea ED Provider: Lux Salinas Dx/Rx/DC Orders Clinical Impression: Acute gastroenteritis Instructions: ED Gastroenteritis, Viral (Adult) Prescriptions: New ondansetron 4 mg tablet,disintegrating 4 mg PO Q6H PRN PRN (Reason: Nausea) Qty: 15 0RF Primary Care Provider: Care Physician,No Primary Referrals: Care Physician,No Primary [Primary Care Provider] - Activity Restrictions/Additional Instructions: Please drink plenty of fluids to stay hydrated. Be careful with sugary drinks as sometimes the extra sugar load can make your diarrhea worse. Work to keep your urine a light yellow to clear. I would recommend taking Imodium for diarrhea. This can be purchased [id number]. I wrote for some ondansetron (Zofran) for nausea vomiting. Should you develop new or worsening symptoms such as fever or abdominal pain please return to emergency for repeat examination. Print Language: Setswana Disposition Disposition: Home, Self Care
[2024-10-27 08:42] VITALS: BP 120/82; PULSE 88; RESP 16; TEMP 36.9; O2SAT 99
[2024-10-27] MEDS: Ondansetron ODT 4 MG Tablet PO (08:54)
[2024-10-27 08:59] VITALS: BP 118/83; PULSE 89; RESP 16; O2SAT 100
== END 2024-10-27 08:59 | disposition home or self-care (01) ==
LOC: ED 08:46
PROVIDERS: Emergency Provider Emergency Medicine; Visit Provider Emergency Medicine
DX: K52.9 Noninfective gastroenteritis and colitis, unspecified (principal); F17.210 Nicotine dependence, cigarettes, uncomplicated; F17.290 Nicotine dependence, other tobacco product, uncomplicated
CPT/HCPCS: 99282